=== PATIENT | male | born 1940 | race Caucasian/White ===

== ENCOUNTER 2017-04-07 05:01 | Observation (INO) | payer MEDICARE, OTHER ==
[2017-04-07] MEDS ORDERED: MORPHINE SULFATE 4 MG/ML SYRINGE IV STA (05:27)
--- NOTE | 2017-04-07 05:31 | ED ---
General Adult HPI - General Chief complaint: Extremity Problem,Nontraumatic Stated complaint: Left Hip Pain Time Seen by Provider: 04/07/17 05:19 Source: patient Mode of arrival: EMS Limitations: no limitations - History of Present Illness Initial comments: This patient is 76-year-old man is to be evaluated for pain he is indicating in the left groin. The patient states that it came on around 2:30 in the morning while he was sleeping. He describes it as an aching, moderate to severe, without any worsening or relieving factors. The pain is constant. Patient has not had any associated symptoms. Onset/Timin -: hour(s) Location: left Radiation: non-radiation Quality: aching Consistency: constant Improves with: none Worsens with: none Associated Symptoms: denies other symptoms - Related Data Home Medications Medication Instructions Recorded Confirmed Atorvastatin [Lipitor] 80 mg PO HS 08/17/15 04/07/17 Metoprolol Tartrate [Lopressor] 50 mg PO BID 08/19/15 04/07/17 Lisinopril [Prinivil] 10 mg PO BID 04/07/17 04/07/17 Zolpidem [Ambien] 10 mg PO HS PRN 04/07/17 04/07/17 Previous Rx's Medication Instructions Recorded Multivitamins, Thera [Multivitamin 1 each PO DAILY@1200 #30 tab 08/19/15 (formulary)] Aspirin 81 mg PO DAILY #1 chewable 04/08/17 Baclofen [Lioresal] 5 mg PO TID PRN #30 tab 04/08/17 Naproxen [Naprosyn] 250 mg PO BID #30 tab 04/08/17 predniSONE 20 mg PO DAILY #24 tab 04/08/17 Allergies Allergy/AdvReac Type Severity Reaction Status Date / Time No Known Allergies Allergy Verified 04/07/17 10:22 Review of Systems ROS Statement: Those systems with pertinent positive or pertinent negative responses have been documented in the HPI. ROS Other: All systems not noted in ROS Statement are negative. Constitutional: Denies: fever, chills Respiratory: Denies: cough, dyspnea Cardiovascular: Denies: chest pain Gastrointestinal: Reports: as per HPI, abdominal pain. Denies: vomiting, diarrhea, constipation Genitourinary: Denies: dysuria, frequency, hematuria, testicular pain, testicular mass Musculoskeletal: Denies: back pain Skin: Denies: rash Neurological: Denies: headache, weakness, numbness Past Medical History Past Medical History: Coronary Artery Disease (CAD), Cancer, COPD, GERD/Reflux, Hyperlipidemia, Hypertension, Myocardial Infarction ([place]), Osteoarthritis (OA), Prostate Disorder Additional Past Medical History / Comment(s): prostate cancer, bulging disc, hiatal hernia, shingles 1989 Last Myocardial Infarction Date:: unk History of Any Multi-Drug Resistant Organisms: None Reported Past Surgical History: Adenoidectomy, Coronary Bypass/CABG, Heart Catheterization, Joint Replacement, Tonsillectomy Additional Past Surgical History / Comment(s): when siphoning gas accidentally swallowed some-had sx to removed blackened tissue. quad cabg,becca knee replacements(lt done x2) rt wrist sx, rt hip replacement 08-02-15 at [facility]. Past Anesthesia/Blood Transfusion Reactions: No Reported Reaction Past Psychological History: No Psychological Hx Reported Additional Psychological History / Comment(s): PT LIVES AT HOME WITH HIS , SINCE RECENT RT HIP SX WAS USING A CANE TO AMBULATE. 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 Smoking Status: Never smoker Past Alcohol Use History: Occasional Past Drug Use History: None Reported - Past Family History Mother Family Medical History: Hyperlipidemia, Hypertension Father Family Medical History: Cancer Additional Family Medical History / Comment(s): throat cancer/mets General Exam Limitations: no limitations General appearance: alert, in no apparent distress Head exam: Present: atraumatic, normocephalic Eye exam: Present: normal appearance. Absent: scleral icterus, conjunctival injection Respiratory exam: Present: normal lung sounds bilaterally. Absent: respiratory distress, wheezes, rales, rhonchi, stridor Cardiovascular Exam: Present: regular rate, normal rhythm, normal heart sounds. Absent: systolic murmur, diastolic murmur, rubs, gallop GI/Abdominal exam: Present: soft, normal bowel sounds. Absent: tenderness, guarding, rebound, mass, pulsatile mass, hernia exam: Present: normal inspection, vertical testicular lie. Absent: testicular tenderness, urethral discharge, scrotal swelling Extremities exam: Present: normal inspection, normal capillary refill. Absent: pedal edema, calf tenderness Back exam: Present: normal inspection. Absent: CVA tenderness (R), CVA tenderness (L), paraspinal tenderness, vertebral tenderness Neurological exam: Present: alert Skin exam: Present: warm, dry, intact, normal color. Absent: rash Course Vital Signs 04/07/17 04/07/17 04/07/17 05:02 06:33 07:30 Temperature 97.7 F 97.9 F 98.0 F Pulse Rate 75 64 70 Respiratory 18 20 16 Rate Blood Pressure 171/73 167/72 136/63 O2 Sat by Pulse 96 96 93 L Oximetry 04/07/17 04/07/17 04/07/17 08:38 09:34 10:39 Temperature 98.2 F 97.8 F Pulse Rate 64 72 72 Respiratory 16 16 16 Rate Blood Pressure 132/56 123/57 126/60 O2 Sat by Pulse 94 L 95 96 Oximetry Medical Decision Making - Medical Decision Making Patient 76-year-old man with hip pain and inability ambulate. We'll admit to have orthopedics consulted. - Lab Data Result diagrams: 04/07/17 05:30 04/07/17 05:30 Lab Results 04/07/17 04/07/17 04/07/17 Range/Units 05:30 05:30 05:50 WBC 11.8 H (3.8-10.6) k/uL RBC 4.63 (4.30-5.90) m/uL Hgb 14.9 (13.0-17.5) gm/dL Hct 41.6 (39.0-53.0) % MCV 89.7 (80.0-100.0) fL MCH 32.1 (25.0-35.0) pg MCHC 35.8 (31.0-37.0) g/dL RDW 13.1 (11.5-15.5) % Plt Count 172 (150-450) k/uL Neutrophils % 82 % Lymphocytes % 10 % Monocytes % 5 % Eosinophils % 2 % Basophils % 0 % Neutrophils # 9.7 H (1.3-7.7) k/uL Lymphocytes # 1.2 (1.0-4.8) k/uL Monocytes # 0.6 (0-1.0) k/uL Eosinophils # 0.3 (0-0.7) k/uL Basophils # 0.0 (0-0.2) k/uL Sodium 142 (137-145) mmol/L Potassium 4.0 (3.5-5.1) mmol/L Chloride 108 H (98-107) mmol/L Carbon Dioxide 25 (22-30) mmol/L Anion Gap 9 mmol/L BUN 14 (9-20) mg/dL Creatinine 0.80 (0.66-1.25) mg/dL Est GFR (MDRD) Af Amer >60 (>60 ml/min/1.73 sqM) Est GFR (MDRD) Non-Af >60 (>60 ml/min/1.73 sqM) Glucose 105 H (74-99) mg/dL Plasma Lactic Acid Ramez 1.0 (0.7-2.0) mmol/L Calcium 9.5 (8.4-10.2) mg/dL Total Bilirubin 0.5 (0.2-1.3) mg/dL AST 27 (17-59) U/L ALT 32 (21-72) U/L Alkaline Phosphatase 83 (38-126) U/L Total Protein 6.0 L (6.3-8.2) g/dL Albumin 3.9 (3.5-5.0) g/dL Amylase 52 (30-110) U/L Lipase 76 (23-300) U/L Urine Color Urine Appearance (Clear) Urine pH (5.0-8.0) Ur Specific [place] (1.001-1.035) Urine Protein (Negative) Urine Glucose (UA) (Negative) Urine Ketones (Negative) Urine Blood (Negative) Urine Nitrite (Negative) Urine Bilirubin (Negative) Urine Urobilinogen (<2.0) mg/dL Ur Leukocyte Esterase (Negative) 04/07/17 Range/Units 08:08 WBC (3.8-10.6) k/uL RBC (4.30-5.90) m/uL Hgb (13.0-17.5) gm/dL Hct (39.0-53.0) % MCV (80.0-100.0) fL MCH (25.0-35.0) pg MCHC (31.0-37.0) g/dL RDW (11.5-15.5) % Plt Count (150-450) k/uL Neutrophils % % Lymphocytes % % Monocytes % % Eosinophils % % Basophils % % Neutrophils # (1.3-7.7) k/uL Lymphocytes # (1.0-4.8) k/uL Monocytes # (0-1.0) k/uL Eosinophils # (0-0.7) k/uL Basophils # (0-0.2) k/uL Sodium (137-145) mmol/L Potassium (3.5-5.1) mmol/L Chloride (98-107) mmol/L Carbon Dioxide (22-30) mmol/L Anion Gap mmol/L BUN (9-20) mg/dL Creatinine (0.66-1.25) mg/dL Est GFR (MDRD) Af Amer (>60 ml/min/1.73 sqM) Est GFR (MDRD) Non-Af (>60 ml/min/1.73 sqM) Glucose (74-99) mg/dL Plasma Lactic Acid Ramez (0.7-2.0) mmol/L Calcium (8.4-10.2) mg/dL Total Bilirubin (0.2-1.3) mg/dL AST (17-59) U/L ALT (21-72) U/L Alkaline Phosphatase (38-126) U/L Total Protein (6.3-8.2) g/dL Albumin (3.5-5.0) g/dL Amylase (30-110) U/L Lipase (23-300) U/L Urine Color Yellow Urine Appearance Clear (Clear) Urine pH 5.5 (5.0-8.0) Ur Specific [place] 1.014 (1.001-1.035) Urine Protein Negative (Negative) Urine Glucose (UA) Negative (Negative) Urine Ketones Negative (Negative) Urine Blood Negative (Negative) Urine Nitrite Negative (Negative) Urine Bilirubin Negative (Negative) Urine Urobilinogen <2.0 (<2.0) mg/dL Ur Leukocyte Esterase Negative (Negative) Disposition Clinical Impression: Left hip pain Disposition: ADMITTED IP TO THIS HOSP Condition: Good
[2017-04-07 05:52] LABS: Basophils % (A) 0 %; CH 31.8; CHCM 35.6; Eosinophils # (A) 0.3 k/uL (0-0.7); Eosinophils % (A) 2 %; HCT 41.6 % (39.0-53.0); HDW 2.63; HGB 14.9 gm/dL (13.0-17.5); Luc # (Auto) 0.12; Luc % (Auto) 1; Lymphocytes # (A) 1.2 k/uL (1.0-4.8); Lymphocytes % (A) 10 %; MCH 32.1 pg (25.0-35.0); MCHC 35.8 g/dL (31.0-37.0); MCV 89.7 fL (80.0-100.0); Mean Platelet Volume 7.2; Monocytes # (A) 0.6 k/uL (0-1.0); Monocytes % (A) 5 %; Neutrophils # (A) 9.7 k/uL (1.3-7.7); Neutrophils % (A) 82 %; RBC 4.63 m/uL (4.30-5.90); RDW 13.1 % (11.5-15.5); WBC 11.8 k/uL (3.8-10.6); WBC (Perox) 11.89
[2017-04-07 06:15] LABS: ALT 32 U/L (21-72); AST 27 U/L (17-59); Alkaline Phosphatase 83 U/L (38-126); Amylase 52 U/L (30-110); Anion Gap 9 mmol/L; Blood Urea Nitrogen 14 mg/dL (9-20); Calcium 9.5 mg/dL (8.4-10.2); Carbon Dioxide 25 mmol/L (22-30); Chloride 108 mmol/L (98-107); Glucose 105 mg/dL (74-99); Non-African American GFR(MDRD) >60 (>60 ml/min/1.73 sqM); Sodium 142 mmol/L (137-145); Total Bilirubin 0.5 mg/dL (0.2-1.3)
[2017-04-07] MEDS ORDERED: HYDROmorphone 1 MG/ML 1 ML SYRINGE IVP STA (06:26)
--- NOTE | 2017-04-07 07:42 | CT ---
EXAMINATION TYPE: CT abdomen pelvis wo con DATE OF EXAM: 04/07/2017 COMPARISON: NONE HISTORY: Left groin pain CT DLP: 658.90 mGycm Examination of the solid and hollow viscera is limited given the lack of contrast. FINDINGS: LUNG BASES: No evidence for nodule. No evidence for infiltrate. LIVER/GB: The gallbladder is unremarkable. No space-occupying hepatic lesion. PANCREAS: No pancreatic mass identified. No inflammatory process seen. SPLEEN: No evidence for splenomegaly. No intrasplenic lesions seen. ADRENALS: No adrenal nodules identified. No evidence for thickening. KIDNEYS: There is a small nonobstructing nephrolithiasis of the left kidney measuring 3 mm. No obstru cting calculi are seen. Hypoattenuating lesions both kidneys may reflect cysts. No hydronephrosis. BOWEL: Appendix has a normal appearance. No evidence of bowel obstruction. No inflammatory process. Lymph nodes: No evidence for adenopathy greater than 1 cm. Abdominal aorta: Atheromatous changes seen. No evidence for aneurysm. Genital organs: No significant abnormality. Other: No significant abnormality. IMPRESSION: NONOBSTRUCTING NEPHROLITHIASIS. NO ACUTE PROCESS IDENTIFIED AT THIS TIME TO ACCOUNT FOR THE PATIENT'S SYMPTOMS.
--- NOTE | 2017-04-07 07:43 | XR ---
EXAMINATION TYPE: XR KUB DATE OF EXAM: 04/07/2017 COMPARISON: NONE HISTORY: Pain TECHNIQUE: Single supine KUB image of the abdomen is obtained FINDINGS: Small bowel demonstrates no evidence for dilatation or air fluid levels. Gas and fecal material is seen in non-distended colon. No convincing evidence for pneumoperitoneum. No unusual calcifications. The lung bases are clear. The osseous structures are intact. Severe degenerative change left hip. Right hip prosthesis. IMPRESSION: 1. Overall nonobstructive bowel gas pattern.
[2017-04-07 08:40] LABS: Appearance,Urine Clear (Clear); Bilirubin,Urine Negative (Negative); Glucose,Urine (UA) Negative (Negative); Ketones,Urine Negative (Negative); Leukocyte Esterase,Urine Negative (Negative); Nitrite,Urine Negative (Negative); PH, Urine 5.5 (5.0-8.0); Protein,Urine Negative (Negative); Specific Gravity,Urine 1.014 (1.001-1.035); UA Billing (MACRO vs. MICRO) CHEM; Urobilinogen,Urine <2.0 mg/dL (<2.0)
[2017-04-07] MEDS ORDERED: NALOXONE 0.4 MG/ML 1 ML VIAL IV PRN (09:05)
[2017-04-07] MEDS ORDERED: ZOLPIDEM 10 MG TAB PO PRN (09:08)
[2017-04-07] MEDS ORDERED: SODIUM CHLORIDE 0.9% 1,000 ML IV SCH (09:15)
[2017-04-07] MEDS: MORPHINE SULFATE 4 MG/ML SYRINGE IV PRN ×2 (11:01→23:04)
[2017-04-07 11:49] VITALS: BMI 31.5
[2017-04-07] MEDS ORDERED: METOPROLOL TARTRATE 50 MG TAB PO STA (12:55)
[2017-04-07] MEDS: MULTIVITAMINS, THERA 1 EACH TAB PO SCH (13:03)
--- NOTE | 2017-04-07 16:55 | XR ---
EXAMINATION TYPE: XR Hip LT and AP Pelvis DATE OF EXAM: 04/07/2017 4:45 PM COMPARISON: 08/18/2015 HISTORY: Left hip pain TECHNIQUE: 3 views FINDINGS: Pelvic ring is intact. There is a right hip prosthesis. There is narrowing of left hip joint space. T here is some mild sclerosis and subchondral cystic change in the left femoral head. I see no fracture . Sacroiliac joints appear intact. There is vascular calcification. IMPRESSION Moderate osteoarthritis in left hip joint is stable compared to old exam. No fracture.
[2017-04-07] MEDS: FAMOTIDINE 20 MG TAB PO SCH (20:33)
[2017-04-07] MEDS: METOPROLOL TARTRATE 50 MG TAB PO SCH (20:33)
[2017-04-07] MEDS ORDERED: ATORVASTATIN 80 MG TAB PO SCH (21:00)
[2017-04-07] MEDS: LISINOPRIL 10 MG TAB PO SCH (21:36)
[2017-04-08 07:11] VITALS: RESP 16
[2017-04-08] MEDS: METOPROLOL TARTRATE 50 MG TAB PO SCH (08:23)
[2017-04-08] MEDS: LISINOPRIL 10 MG TAB PO SCH (08:23)
[2017-04-08] MEDS: FAMOTIDINE 20 MG TAB PO SCH (08:23)
[2017-04-08] MEDS ORDERED: ENOXAPARIN 40 MG/0.4 ML SYRINGE SQ SCH (09:00)
[2017-04-08] MEDS ORDERED: LISINOPRIL 10 MG TAB PO SCH (09:00)
[2017-04-08] MEDS: MORPHINE SULFATE 4 MG/ML SYRINGE IV PRN (09:29)
[2017-04-08] MEDS: MULTIVITAMINS, THERA 1 EACH TAB PO SCH (12:52)
[2017-04-08] MEDS ORDERED: NAPROXEN 250 MG TAB PO SCH (14:45)
[2017-04-08] MEDS ORDERED: BACLOFEN 10 MG TAB PO SCH (15:00)
--- NOTE | 2017-04-08 17:11 | P.CNOR ---
History of Present Illness - HPI Consult date: 04/08/17 Consult reason: joint pain (Left hip pain) History of present illness: This is a 76-year-old male who is admitted to [facility] on 02/2017 with intractable left hip pain. Patient states that he woke in the middle of the night with severe left groin pain. He has no history of trauma or injury. He denies fever or chills. He has history of right total hip arthroplasty in the past. We're consulted for orthopedic evaluation. Past Medical History Past Medical History: Coronary Artery Disease (CAD), Cancer, COPD, GERD/Reflux, Hyperlipidemia, Hypertension, Myocardial Infarction ([place]), Osteoarthritis (OA), Prostate Disorder Additional Past Medical History / Comment(s): prostate cancer, bulging disc, hiatal hernia, shingles 1989 Last Myocardial Infarction Date:: unk History of Any Multi-Drug Resistant Organisms: None Reported Past Surgical History: Adenoidectomy, Coronary Bypass/CABG, Heart Catheterization, Joint Replacement, Tonsillectomy Additional Past Surgical History / Comment(s): when siphoning gas accidentally swallowed some-had sx to removed blackened tissue. quad cabg,becca knee replacements(lt done x2) rt wrist sx, rt hip replacement 08-02-15 at [facility]. Past Anesthesia/Blood Transfusion Reactions: No Reported Reaction Past Psychological History: No Psychological Hx Reported Additional Psychological History / Comment(s): PT LIVES AT HOME WITH HIS , SINCE RECENT RT HIP SX WAS USING A CANE TO AMBULATE. 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 Smoking Status: Never smoker Past Alcohol Use History: Occasional Past Drug Use History: None Reported - Past Family History Mother Family Medical History: Hyperlipidemia, Hypertension Father Family Medical History: Cancer Additional Family Medical History / Comment(s): throat cancer/mets Medications and Allergies Home Medications Medication Instructions Recorded Confirmed Type Atorvastatin [Lipitor] 80 mg PO HS 08/17/15 04/07/17 History Metoprolol Tartrate [Lopressor] 50 mg PO BID 08/19/15 04/07/17 History Lisinopril [Prinivil] 10 mg PO BID 04/07/17 04/07/17 History Zolpidem [Ambien] 10 mg PO HS PRN 04/07/17 04/07/17 History Allergies Allergy/AdvReac Type Severity Reaction Status Date / Time No Known Allergies Allergy Verified 04/07/17 10:22 Physical Examination This is a pleasant 76-year-old male in no acute distress. He is alert and oriented 3. Exam of the left hip reveals no obvious deformity. He has difficulty with full extension of the knee and hip. There is pain with internal and external rotation of the hip. Straight leg raise produces no increased pain. He has full foot and ankle motion without difficulty. He has 5 /5 strength with dorsiflexion and plantarflexion of the foot against resistance. The patient is able to ambulate with a walker with slight antalgic gait. Exam of the low back reveals no obvious deformity. There is minimal pain with palpation about the lower lumbar spine and paraspinal musculature. Neurovascular status to the lower extremities is intact. Results X-ray of the pelvis and left hip reveal moderate to severe degenerative arthritis of the left hip. There is a total right hip in place in good position and alignment. No acute fractures are identified. Computed tomography scan of the abdomen and pelvis reveal no bony abnormality. No obvious psoas abscess noted. - Labs Labs: Microbiology - Last 24 Hours (Table) 04/07/17 08:08 Urine Culture - Final Urine,Voided H & H 04/07/17 Range/Units 05:30 Hgb 14.9 (13.0-17.5) gm/dL Hct 41.6 (39.0-53.0) % Result Diagrams: 04/07/17 05:30 04/07/17 05:30 Assessment and Plan (1) Left hip pain Status: Acute (2) Primary localized osteoarthritis of left hip Status: Acute Plan: The clinical and x-ray findings are discussed with the patient. It is discussed that his pain is most likely coming from his degenerative arthritis of the hip. There may also be a lumbar radicular component. He is improving on the anti-inflammatory. I believe that he would improve even quicker with a prednisone taper. He will be discharged to home today. He is to begin the prednisone 60 mg daily 4 days, then 40 mg daily for 4 days, then 20 mg daily for 4 days. He is to follow-up with Dr. Cheek in one week.
[2017-04-08 17:23] VITALS: BP 140/75; PULSE 61; TEMP 97.9
--- NOTE | 2017-04-08 20:11 | HP ---
DATE OF ADMISSION: 04/07/2017 PRESENTING COMPLAINT: Left groin pain. HISTORY OF PRESENTING COMPLAINT: This is a very pleasant 76-year-old patient of Dr. Carbajal. Chronic stable medical conditions include coronary artery disease, prior NH, GERD, hyperlipidemia, hypertension, herniated disc in the lower back. Patient has had multiple joints replaced, has seen Dr. Guzman in the past. Patient has been told he has got arthritis in the left hip. Yesterday he developed severe pain in the left groin area, going down to the bone going across laterally to the left hip. The point is finding difficult to lift the leg and decided to come in to get a second opinion about a joint. No fever. No trouble in the urine. No change in bowel. REVIEW OF SYSTEMS: CONSTITUTIONAL: None. HEENT: None. RESPIRATORY: None. CARDIOVASCULAR: None. GASTROINTESTINAL: Heartburn. GENITOURINARY: None. MUSCULOSKELETAL: As above. Dermatological: None. HEMATOLOGICAL: None. LYMPHATICS: None. PSYCHIATRY: None. NEUROLOGICAL: None. Past medical history of coronary artery disease, GERD, hyperlipidemia, hypertension, osteoarthritis, prostate cancer treated with radiation treatment. Lower back herniated disc. PAST SURGICAL HISTORY: Adenoidectomy, coronary artery bypass, joint replacement, tonsillectomy, bilateral knee replacement, right wrist surgery, right hip replacement. SOCIAL HISTORY: . Uses a cane. 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 Was in [facility], exposed to agent orange. No smoking. Alcohol occasionally. FAMILY HISTORY: Hyperlipidemia, hypertension, throat cancer. HOME MEDICATIONS: 1. Prinivil 10 mg p.o. b.i.d. 2. Ambien 10 mg p.o. q.h.s. 3. Multivitamin 1 tablet p.o. daily at noon. 4. Lopressor 50 mg p.o. b.i.d. 5. Lipitor 80 mg q.h.s. 6. Aspirin 325 p.o. daily p.r.n. ALLERGIES: None. On examination, temperature 98.2, pulse 54, respiratory rate 16, blood pressure 146/55, pulse ox 95% on room air. GENERAL APPEARANCE: Well built, BMI of 37.6 sitting up, not in distress. EYES: Pupils equal. Conjunctivae normal. HEENT: External appearance of nose and ears normal. Oral cavity normal. NECK: JVD not raised. Mass not palpable. RESPIRATORY: Effort normal. Lungs are clear. CARDIOVASCULAR: First and second sounds are normal. No edema. ABDOMEN: Soft, nontender. Liver and spleen not palpable. LYMPHATICS: No lymph nodes palpable in neck or axillae. PSYCHIATRY: Alert and oriented x3. Mood and affect normal. NEUROLOGICAL: Pupils equal. Cranial nerves grossly intact. Power and sensation grossly intact. MUSCULOSKELETAL: Evidence of osteoarthritis especially in the left hip in that left hip range of motion somewhat limited. Arthritis also noted in the hands. INVESTIGATIONS: White count 11.8, hemoglobin 14.9, platelets 172. Potassium 4.0, BUN and creatinine are normal. UA negative. INVESTIGATIONS: Hip x-ray is showing arthritis left hip. ASSESSMENT: 1. Acute flare of arthritis in the left hip, causing range of motion pain and some limitation to walking. 2. Coronary artery disease with prior history coronary artery bypass. 3. Gastroesophageal reflux disease. 4. Hyperlipidemia. 5. Essential hypertension. 6. Primary osteoarthritis in multiple joints including the hands and some replacement from before. 7. Lower back herniated disc. PLAN: Patient's home medications are resumed. We will give patient prescription of Aleve. Orthopedics is consulted for their opinion. Lovenox for DVT prophylaxis. Care was discussed with the patient and await input from orthopedics. Go from there.
--- NOTE | 2017-04-26 20:01 | DS ---
DATE OF ADMISSION: 04/07/2017 DATE OF DISCHARGE: 04/08/2017 FINAL DIAGNOSES: 1. Acute flare-up of osteoarthritis primarily of the left hip causing limited range of motion, maybe some radiculopathy. 2. Coronary artery disease with prior history of coronary artery bypass. 3. Gastroesophageal reflux disease. 4. Hyperlipidemia. 5. Essential hypertension. 6. Primary osteoarthritis of multiple joints including hands and lower back. 7. Chronic lower back herniated disc. CONSULTATION: Dr. Cheek. HOSPITAL COURSE: This patient has increasing pain on the left groin, felt to have osteoarthritis of the left hip. Patient had seen Dr. Guzman in the past and told to get surgery done on that. The patient said he really wanted a second opinion. X-ray did confirm the same. Patient also had a CT scan of the abdomen and pelvis. Dr. Cheek recommended a steroid taper. Patient getting the same. He understands he may need to get surgery down the road. On exam, LUNGS: Decreased breath sounds. CARDIOVASCULAR: First and second sounds normal. DISCHARGE MEDICATIONS: 1. Lipitor 80 mg q.h.s. 2. Lopressor 50 mg b.i.d. 3. Multivitamin 1 tablet p.o. daily at noon. 4. Prinivil 10 mg p.o. b.i.d. 5. Ambien 10 mg q.h.s. p.r.n. 6. Aspirin 81 mg p.o. daily. 7. Baclofen 5 mg p.o. t.i.d. p.r.n. 8. Naproxen 250 mg p.o. b.i.d. 9. Prednisone taper. Follow up with results to physician in a week. Follow with Dr. Carbajal in one week.
== END 2017-04-08 18:29 | disposition home or self-care (01) ==
LOC: EC 05:01 → 3OBS 10:15
PROVIDERS: ADMIT Hospitalist; ATTEND Hospitalist
DX: M16.12 Unilateral primary osteoarthritis, left hip (principal); I10 Essential (primary) hypertension; E78.5 Hyperlipidemia, unspecified; I25.2 Old myocardial infarction; I25.10 Atherosclerotic heart disease of native coronary artery without angina pectoris; Z79.899 Other long term (current) drug therapy; J44.9 Chronic obstructive pulmonary disease, unspecified; K21.9 Gastro-esophageal reflux disease without esophagitis; Z85.46 Personal history of malignant neoplasm of prostate; Z95.1 Presence of aortocoronary bypass graft; Z82.49 Family history of ischemic heart disease and other diseases of the circulatory system; Z92.3 Personal history of irradiation; M51.26 Other intervertebral disc displacement, lumbar region; Z96.653 Presence of artificial knee joint, bilateral; Z96.641 Presence of right artificial hip joint; Z79.82 Long term (current) use of aspirin; M19.042 Primary osteoarthritis, left hand; M19.041 Primary osteoarthritis, right hand; M47.9 Spondylosis, unspecified; M19.91 Primary osteoarthritis, unspecified site
CPT/HCPCS: 99285; 96374 ×2; 96375 ×2; 96376 ×4; 96372; 36415; 80053; 82150; 83605; 83690; 85025; 81003; 87086; 74000; 73502; 74176; G0378 ×2; J2270 ×2; J1650; J1170

== ENCOUNTER 2020-08-17 15:41 | Observation (INO) | payer MEDICARE, OTHER ==
[2020-08-17] MEDS ORDERED: HEPARIN SODIUM,PORCINE 5,000 UNIT/ML 1 ML VIAL IV PRN (15:46)
[2020-08-17] MEDS ORDERED: ACETAMINOPHEN TAB 325 MG TAB PO PRN (15:46)
[2020-08-17] MEDS ORDERED: NALOXONE 0.4 MG/ML 1 ML VIAL IV PRN (15:46)
[2020-08-17] MEDS ORDERED: MORPHINE SULFATE 4 MG/ML SYRINGE IV PRN (15:46)
--- NOTE | 2020-08-17 15:48 | ED ---
General Adult HPI - General Stated complaint: chest pain Source: RN notes reviewed, old records reviewed - History of Present Illness Initial comments: 79-year-old male presenting for evaluation of chest pain. Patient was transferred from outside facility with a non-ST segment elevated WA in an elevated troponin of 0.051. He had been experiencing intermittent chest pain. Pain was left upper chest, nonradiating, no associated nausea or diaphoresis. He was initiated on heparin and transferred for cardiology evaluation. He has remote history of coronary artery bypass graft in 2001. - Related Data Home Medications Medication Instructions Recorded Confirmed Atorvastatin [Lipitor] 80 mg PO HS 08/17/15 04/07/17 Metoprolol Tartrate [Lopressor] 50 mg PO BID 08/19/15 04/07/17 Zolpidem [Ambien] 10 mg PO HS PRN 04/07/17 04/07/17 lisinopriL [Prinivil] 10 mg PO BID 04/07/17 04/07/17 Previous Rx's Medication Instructions Recorded Multivitamins, Thera [Multivitamin 1 each PO DAILY@1200 #30 tab 08/19/15 (formulary)] Aspirin 81 mg PO DAILY #1 chewable 04/08/17 Baclofen [Lioresal] 5 mg PO TID PRN #30 tab 04/08/17 Naproxen [Naprosyn] 250 mg PO BID #30 tab 04/08/17 predniSONE [Deltasone] 20 mg PO DAILY #24 tab 04/08/17 Allergies Allergy/AdvReac Type Severity Reaction Status Date / Time No Known Allergies Allergy Verified 08/17/20 15:49 Review of Systems ROS Statement: Those systems with pertinent positive or pertinent negative responses have been documented in the HPI. ROS Other: All systems not noted in ROS Statement are negative. Past Medical History Past Medical History: Coronary Artery Disease (CAD), Cancer, COPD, GERD/Reflux, Hyperlipidemia, Hypertension, Myocardial Infarction ([place]), Osteoarthritis (OA), Prostate Disorder Additional Past Medical History / Comment(s): prostate cancer, bulging disc,hiatal hernia, shingles 1989 Last Myocardial Infarction Date:: unk History of Any Multi-Drug Resistant Organisms: None Reported Past Surgical History: Adenoidectomy, Coronary Bypass/CABG, Heart Catheteriz ation, Joint Replacement, Tonsillectomy Additional Past Surgical History / Comment(s): when siphoning gas accidentally swallowed some-had sx to removed blackened tissue. quad cabg,becca knee replacements(lt done x2) rt wrist sx, rt hip replacement 08-02-15 at [facility]. Past Anesthesia/Blood Transfusion Reactions: No Reported Reaction Past Psychological History: No Psychological Hx Reported Additional Psychological History / Comment(s): PT LIVES AT HOME WITH HIS , SINCE RECENT RT HIP SX WAS USING A CANE TO AMBULATE. 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 Past Alcohol Use History: Occasional Past Drug Use History: None Reported - Past Family History Mother Family Medical History: Hyperlipidemia, Hypertension Father Family Medical History: Cancer Additional Family Medical History / Comment(s): throat cancer/mets General Exam General appearance: alert, in no apparent distress Head exam: Present: atraumatic, normocephalic Eye exam: Present: normal appearance, PERRL ENT exam: Present: normal exam Neck exam: Present: normal inspection. Absent: tenderness, meningismus Respiratory exam: Present: normal lung sounds bilaterally. Absent: respiratory distress, wheezes Cardiovascular Exam: Present: regular rate, normal rhythm, systolic murmur GI/Abdominal exam: Present: soft. Absent: distended, tenderness, guarding, rebound Extremities exam: Present: normal inspection, normal capillary refill Neurological exam: Present: alert, oriented X3, CN II-XII intact. Absent: motor sensory deficit Psychiatric exam: Present: normal affect, normal mood Skin exam: Present: warm, dry, intact Course Vital Signs 08/17/20 15:42 Temperature 98.2 F Pulse Rate 77 Respiratory 18 Rate Blood Pressure 197/104 O2 Sat by Pulse 98 Oximetry EKG Findings - EKG Comments: EKG Findings:: EKG: Sinus rhythm with first-degree AV block, right bundle branch block, and no ST segment elevation, history of right bundle-branch block, rate of 66, AZ interval 228, QRS duration 158, QTC 448 Medical Decision Making - Medical Decision Making 79-year-old male presented with chest pain and troponin elevation. Patient's chest pain. The emergency department. EKG showing right bundle branch block, no ST segment elevation. Workup at outside facility revealed a white blood cell count 9.7, hemoglobin 15, normal sodium, at 141, potassium 3.9, normal kidney function with a creatinine 0.9. He had a troponin of 0.051. This will be repeated. He had been started on heparin, this will be continued awaiting cardiology evaluation and serial cardiac enzymes. Case discussed with Dr. medina who will admit - Lab Data Result diagrams: 08/17/20 16:04 Lab Results 08/17/20 Range/Units 16:04 WBC 8.8 (3.8-10.6) k/uL RBC 4.66 (4.30-5.90) m/uL Hgb 15.0 (13.0-17.5) gm/dL Hct 44.6 (39.0-53.0) % MCV 95.5 (80.0-100.0) fL MCH 32.2 (25.0-35.0) pg MCHC 33.8 (31.0-37.0) g/dL RDW 12.2 (11.5-15.5) % Plt Count 205 (150-450) k/uL Neutrophils % 68 % Lymphocytes % 20 % Monocytes % 5 % Eosinophils % 5 % Basophils % 1 % Neutrophils # 6.0 (1.3-7.7) k/uL Lymphocytes # 1.8 (1.0-4.8) k/uL Monocytes # 0.4 (0-1.0) k/uL Eosinophils # 0.4 (0-0.7) k/uL Basophils # 0.1 (0-0.2) k/uL Critical Care Time Critical Care Time: Yes Total Critical Care Time: 35 Disposition Clinical Impression: NSTEMI (non-ST elevated myocardial infarction) Disposition: ADMITTED IP TO THIS [facility] Condition: Stable Is patient prescribed a controlled substance at d/c from ED?: No Referrals: Allan Carbajal MD [Primary Care Provider] - 1-2 days Decision to Admit Reason: Admit from EC Decision Date: 08/17/20 Decision Time: 15:48
[2020-08-17] MEDS ORDERED: HEPARIN SOD,PORK IN 0.45% NACL 25,000 UNIT in 0.45% NACL 1 250ML.BAG IV SCH (16:00)
[2020-08-17 16:18] LABS: Basophils # (A) 0.1 k/uL (0-0.2); Basophils % (A) 1 %; Eosinophils # (A) 0.4 k/uL (0-0.7); Eosinophils % (A) 5 %; HCT 44.6 % (39.0-53.0); Lymphocytes # (A) 1.8 k/uL (1.0-4.8); Lymphocytes % (A) 20 %; MCH 32.2 pg (25.0-35.0); MCHC 33.8 g/dL (31.0-37.0); MCV 95.5 fL (80.0-100.0); Mean Platelet Volume 7.2; Monocytes # (A) 0.4 k/uL (0-1.0); Monocytes % (A) 5 %; Neutrophils % (A) 68 %; Platelet Count 205 k/uL (150-450); RBC 4.66 m/uL (4.30-5.90); RDW 12.2 % (11.5-15.5); WBC 8.8 k/uL (3.8-10.6)
[2020-08-17 16:25] LABS: African American GFR (CKD) >90 (>60 ml/min/1.73 sqM); Anion Gap 6 mmol/L; Blood Urea Nitrogen 18 mg/dL (9-20); Calcium 9.4 mg/dL (8.4-10.2); Carbon Dioxide 28 mmol/L (22-30); Chloride 107 mmol/L (98-107); Glucose 124 mg/dL (74-99); Magnesium 2.2 mg/dL (1.6-2.3); Non-African American GFR(CKD) 79 (>60 ml/min/1.73 sqM); Potassium 4.4 mmol/L (3.5-5.1); Sodium 141 mmol/L (137-145)
[2020-08-17 16:31] LABS: Prothrombin Time 10.1 sec (9.0-12.0)
[2020-08-17 16:36] LABS: Partial Thromboplastin Time 67.3 sec (22.0-30.0)
[2020-08-17] MEDS ORDERED: ATORVASTATIN 40 MG TAB PO SCH (21:00)
[2020-08-17] MEDS: METOPROLOL TARTRATE 50 MG TAB PO SCH ×2 (21:55→21:59)
[2020-08-17] MEDS: lisinopriL 10 MG TAB PO SCH (21:56)
[2020-08-17] MEDS ORDERED: TEMAZEPAM 15 MG CAP PO PRN (22:25)
[2020-08-17] MEDS ORDERED: HYDROcodone/APAP 5-325MG 1 EACH TAB PO PRN (22:25)
[2020-08-17] MEDS ORDERED: ALPRAZolam 0.25 MG TAB PO PRN (22:25)
[2020-08-17] MEDS ORDERED: SIMETHICONE 80 MG CHEWABLE PO PRN (23:00)
--- NOTE | 2020-08-17 23:07 | XR ---
EXAMINATION TYPE: XR chest 1V portable DATE OF EXAM: 08/17/2020 COMPARISON: Today HISTORY: Short of breath TECHNIQUE: Single view FINDINGS: There is no heart failure nor confluent pneumonic infiltrate. There is small linear density left lung base. There are sternal wires. There are no hilar masses. There are chest leads. IMPRESSION: Minimal subsegmental atelectasis at the left lung base. No significant change compared to exam earlier today. No heart failure.
--- NOTE | 2020-08-17 23:36 | HP ---
HISTORY AND PHYSICAL CHIEF COMPLAINT: Chest pain. HISTORY OF PRESENT ILLNESS: This 79-year-old gentleman with a past medical history of CAD, history of COPD, GERD, hypertension, hyperlipidemia, history of myocardial infarction, CAD, CABG, being followed by Dr. Carbajal in the outpatient setting, was having chest pains for the past several days. The pain was felt in the anterior part of the chest. It was rather sharp in character, on and off multiple times. The patient went to a local hospital and troponin was found to be 0.05. Patient was referred to [facility] for further evaluation and treatment. The initial troponins were found to be 0.044 and 0.051. Heparin was initiated. Acute coronary protocol was initiated. EKG done on admission showed right bundle branch block also. There is no history of any fever, rigor or chills. No history of headache, loss of consciousness, seizures. PAST MEDICAL HISTORY: History of CAD, CABG, COPD, GERD, hypertension, hyperlipidemia, prostate cancer. MEDICATIONS: Medications prior to admission include: 1. Prinivil 10 mg p.o. b.i.d. 2. Simethicone 160 mg t.i.d. p.r.n. 3. Lopressor 50 mg p.o. b.i.d. 4. Lipitor 40 mg. 5. Ecotrin 81 mg. 6. Aspirin 650 mg once. ALLERGIES: NONE. FAMILY HISTORY: History of hypertension, hyperlipidemia, sore throat, cancer with metastases. SOCIAL HISTORY: No history of smoking. Occasional alcohol intake. REVIEW OF SYSTEMS: ENT: Diminished hearing. Diminished vision. CARDIOVASCULAR SYSTEM: As mentioned earlier. RESPIRATORY SYSTEM: As mentioned earlier. GI: No nausea, vomiting. : No dysuria or retention. NERVOUS SYSTEM: No numbness, weakness. ALLERGY/IMMUNOLOGY: No asthma, hayfever. MUSCULOSKELETAL: As mentioned earlier. HEMATOLOGY/ONCOLOGY: No history of anemia. ENDOCRINE: No history of diabetes, hypothyroidism. CONSTITUTIONAL: As mentioned earlier. DERMATOLOGY: Negative. RHEUMATOLOGY: Negative. PSYCHIATRY: As mentioned earlier. PHYSICAL EXAMINATION: Patient alert and oriented x3. Pulse 64, blood pressure 168/85, respiration 18, temperature 98.2, pulse ox 96% on room air. HEENT: Conjunctivae normal. NECK: No jugular venous distention. CARDIOVASCULAR SYSTEM: S1, S2 muffled. RESPIRATORY SYSTEM: Breath sounds diminished at the bases. A few scattered rhonchi and crackles. ABDOMEN: Soft, non-tender. No mass palpable. LEGS: No edema. No swelling. NERVOUS SYSTEM: Higher functions as mentioned earlier. Moves all 4 limbs. No focal motor or sensory deficit. LYMPHATICS: No lymph node palpable in neck, axillae or groin. SKIN: No ulcer, rash, bleeding. JOINTS: No active deforming arthropathy. LABS: CBC within normal limits. Troponins are noted. Glucose 124. ASSESSMENT: 1. Chest pain, possible acute uvp-CG-[id number]-elevation myocardial infarction. 2. Troponin 0.051. 3. Right bundle branch block on EKG. 4. Coronary artery disease, coronary artery bypass grafting history. 5. History of chronic obstructive pulmonary disease. 6. Gastroesophageal reflux disease. 7. Hypertension. 8. Hyperlipidemia. 9. History of degenerative joint disease. 10.History of prostate cancer. 11.History of hiatal hernia. 12.History of shingles. 13.Social stressors. 14.FULL CODE. RECOMMENDATIONS AND DISCUSSION: In this 79-year-old gentleman who presented with multiple complex medical issues, we will monitor the patient closely, continue the current medications, continue with symptomatic treatment. Otherwise, IV heparin. Resume the home medications. Antiplatelet agents. Lipitor. Cardiology consultation. Prognosis guarded because of multiple complex medical issues. Further recommendations to follow. A copy of this dictation is being forwarded to Dr. Carbajal, who is the primary physician. See orders for further details. MMODL / IJN: [id number] /
[2020-08-18] MEDS: METOPROLOL TARTRATE 50 MG TAB PO SCH (08:00)
[2020-08-18 08:47] LABS: Basophils # (A) 0.1 k/uL (0-0.2); Basophils % (A) 1 %; Eosinophils # (A) 0.4 k/uL (0-0.7); Eosinophils % (A) 5 %; HGB 15.5 gm/dL (13.0-17.5); Lymphocytes # (A) 1.5 k/uL (1.0-4.8); Lymphocytes % (A) 19 %; MCH 31.4 pg (25.0-35.0); MCHC 32.3 g/dL (31.0-37.0); MCV 97.3 fL (80.0-100.0); Mean Platelet Volume 7.6; Monocytes # (A) 0.4 k/uL (0-1.0); Monocytes % (A) 5 %; Neutrophils # (A) 5.4 k/uL (1.3-7.7); Neutrophils % (A) 68 %; Platelet Count 175 k/uL (150-450); RBC 4.93 m/uL (4.30-5.90); RDW 12.2 % (11.5-15.5)
[2020-08-18 08:50] LABS: African American GFR (CKD) >90 (>60 ml/min/1.73 sqM); Anion Gap 8 mmol/L; Blood Urea Nitrogen 14 mg/dL (9-20); Calcium 9.1 mg/dL (8.4-10.2); Carbon Dioxide 22 mmol/L (22-30); Chloride 109 mmol/L (98-107); Glucose 97 mg/dL (74-99); Non-African American GFR(CKD) 86 (>60 ml/min/1.73 sqM); Potassium 4.4 mmol/L (3.5-5.1); Sodium 139 mmol/L (137-145)
[2020-08-18] MEDS ORDERED: ASPIRIN 81 MG PO SCH (09:00)
--- NOTE | 2020-08-18 09:08 | ECHOF ---
Referral Reason:CP MEASUREMENTS -------- HEIGHT: 167.6 cm WEIGHT: 82.6 kg BP: IVSd: 1.7 cm (0.6 - 1.1) LVIDd: 4.6 cm (3.9 - 5.3) LVPWd: 1.6 cm (0.6 - 1.1) IVSs: 2.1 cm LVIDs: 3.6 cm LVPWs: 2.0 cm LAESV Index (A-L): 35.26 ml/m Ao Diam: 3.3 cm (2.0 - 3.7) AV Cusp: 1.5 cm (1.5 - 2.6) LA Diam: 3.7 cm (2.7 - 3.8) MV EXCURSION: 15.271 mm (> 18.000) MV EF SLOPE: 65 mm/s (70 - 150) EPSS: 1.0 cm MV E Mart: 0.95 m/s MV DecT: 260 ms MV A Mart: 0.31 m/s MV E/A Ratio: 3.09 RAP: 5.00 mmHg RVSP: 7.73 mmHg FINDINGS -------- Sinus rhythm. This was a technically difficult study with suboptimal views. The left ventricular size is normal. There is moderate concentric left ventricular hypertrophy. O verall left ventricular systolic function is mildly impaired with, an EF between 45 - 50 %. Normal LAP Grade 1 Diastolic Dysfunction. Basal lateral LV wall motion is hypokinetic. Mid lateral LV w all motion is hypokinetic. The right ventricle is normal in size. LA is moderately dilated 34-39 ml/m2 The right atrial size is normal. Lumason used There is mild aortic valve sclerosis. The mitral valve is normal. Mild mitral regurgitation is present. The tricuspid valve appears structurally normal. Mild tricuspid regurgitation present. Right vent ricular systolic pressure is normal at < 35 mmHg. There is no pulmonic regurgitation present. The aortic root size is normal. IVC Not well visulized. There is no pericardial effusion. CONCLUSIONS -------- 1. There is moderate concentric left ventricular hypertrophy. 2. Overall left ventricular systolic function is mildly impaired with, an EF between 45 - 50 %. 3. Normal LAP Grade 1 Diastolic Dysfunction. 4. Basal lateral LV wall motion is hypokinetic. 5. Mid lateral LV wall motion is hypokinetic. 6. LA is moderately dilated 34-39 ml/m2 7. There is mild aortic valve sclerosis. 8. Mild mitral regurgitation is present. 9. Mild tricuspid regurgitation present. 10. There is no pericardial effusion. EMU FARMER: Farida Mcmahan RDCS
[2020-08-18 09:29] VITALS: RESP 16
[2020-08-18] MEDS ORDERED: CAFFEINE CITRATE 60 MG/3 ML VIAL IV PRN (09:41)
[2020-08-18] MEDS ORDERED: REGADENOSON 0.4 MG/5 ML SYRINGE IV ONE (09:41)
[2020-08-18] MEDS ORDERED: AMINOPHYLLINE 500 MG/20 ML VIAL IV PRN (09:41)
[2020-08-18] MEDS: lisinopriL 10 MG TAB PO SCH (09:42)
--- NOTE | 2020-08-18 12:41 | NM ---
EXAMINATION TYPE: NM stress lexiscan cardiolite DATE OF EXAM: 08/18/2020 COMPARISON: NONE HISTORY: 79-year-old male with chest pain TECHNIQUE: After the intravenous administration of 10.1 mCi Tc 99m Sestamibi - Cardiolite resting SP ECT images acquired 55 minutes post injection. The patient received 0.4mg Lexiscan, 25.4 mCi Tc 99m Sestamibi - Stress images obtained [address] injection FINDINGS: During the exam, the technologist indicates right bundle branch block and PVCs on the EKG. Review of stress and rest SPECT images demonstrates slight left ventricular chamber enlargement and l arge area of fixed decreased perfusion along the inferior wall. Gated analysis shows global hypokines is with an estimated left ventricular ejection fraction of 42 %. TID is normal at 0.73. IMPRESSION: Correlate for ischemic cardiomyopathy given some left ventricular chamber enlargement, global hypokin esis, estimated LVEF of 42%, and a large fixed perfusion defect of the inferior wall suggesting old i nfarct. No reversibility identified.
--- NOTE | 2020-08-18 12:42 | P.CRDCN ---
History of Present Illness History of present illness: HISTORY OF PRESENTING ILLNESS This is a pleasant 79-year-old male past medical history significant for inferior wall myocardial infarction 2002 status post coronary artery bypass grafting with ROBERSON to LAD, ADALBERTO to OM, SVG to diagonal SVG to RCA, COPD, hypertension, dyslipidemia and prostate cancer. He follows in the office with Dr. Key. We have been asked to see in consultation for troponin elevation. He presented initially to [facility] secondary to a one-week history of intermittent chest pain. Initial troponin on arrival there was 0.051 prompting him to be transferred here for further cardiac evaluation. His chest discomfort is in the left precordial region with no specific exacerbating factors. The pain was sharp in nature and not associated with shortness of breath, dizziness, palpitations, nausea, vomiting or diaphoresis. There was no radiation to the neck, back, arm or jaw. The pain has been intermittent and ongoing for the previous one week. He is seen and examined sitting up in the chair in no acute distress. He is currently chest pain-free. Echocardiogram obtained reveals mildly impaired LV systolic function with ejection fraction 45-50%, grade 1 diastolic dysfunction, basal lateral and mid lateral wall motion hypokinesia, mild MR and mild TR. DIAGNOSTICS EKG reveals sinus mechanism with first degree AV block and right bundle branch block. Chest xray negative for an acute cardiopulmonary process. Laboratory reviewed, CBC unremarkable, sodium 139, potassium 4.4, creatinine 0.79, magnesium 2.2, troponin 0.044, 0.051 and 0.049. Current cardiac medications include aspirin 81 mg daily, atorvastatin 40 mg daily, metoprolol 50 mg twice a day lisinopril 10 mg twice a day. He underwent stress test in the office October 2019 revealing a fixed defect with no evidence of reversibility. Echocardiogram obtained September 2018 reve aled mildly impaired LV systolic function with ejection fraction 45%. REVIEW OF SYSTEMS At the time of my exam: CONSTITUTIONAL: Denies fever or chills. CARDIOVASCULAR: Denies chest pain, shortness of breath, orthopnea, PND or palpitations. RESPIRATORY: Denies cough. GASTROINTESTINAL: Denies abdominal pain, diarrhea, constipation, nausea or vomiting. MUSCULOSKELETAL: Denies myalgias. NEUROLOGIC: Denies numbness, tingling or weakness. ENDOCRINE: Denies fatigue, weight change, polydipsia or polyurina. GENITOURINARY: Denies burning, hematuria or urgency with micturation. HEMATOLOGIC: Denies history of anemia or bleeding. PHYSICAL EXAMINATION Blood pressure 173/74 heart rate 67 afebrile and maintaining oxygen saturation on room air. CONSTITUTIONAL: No apparent distress. HEENT: Head is normocephalic. Pupils are equal, round. Sclerae anicteric. Mucous membranes of the mouth are moist. No JVD. No carotid bruit. CHEST EXAMINATION: Lungs are clear to auscultation. No chest wall tenderness is noted on palpation or with deep breathing. HEART EXAMINATION: Regular rate and rhythm. S1, S2 heard. No murmurs, gallops or rub. ABDOMEN: Soft, nontender. Positive bowel sounds. EXTREMITIES: 2+ peripheral pulses, no lower extremity edema and no calf tenderness. NEUROLOGIC EXAMINATION: Patient is awake, alert and oriented x3. ASSESSMENT Chest pain, atypical for angina. Troponin elevation of unclear significance. No typical rise and fall pattern. History of coronary artery disease status post bypass grafting. History of inferior wall myocardial infarction Hypertension Dyslipidemia PLAN Discussed with the patient the troponin elevation and the possible cause being myocardial injury. He feels like his symptoms are not like they were in 2001 and would prefer stress testing. This is a reasonable approach.We will schedule him for a Lexiscan stress test this morning. If there is evidence of reversibility he will undergo cathterization tomorrow with Dr. Key. Discontinue heparin infusion. Continue lisinopril, metoprolol, aspirin and atorvastatin as previously ordered. Further recommendations to follow based on clinical course. Thank you kindly for this consultation. Nurse Practitioner note has been reviewed, I agree with a documented findings and plan of care. Patient was seen and examined. Past Medical History Past Medical History: Coronary Artery Disease (CAD), Cancer, COPD, GERD/Reflux, Hyperlipidemia, Hypertension, Myocardial Infarction ([place]), Osteoarthritis (OA), Prostate Disorder Additional Past Medical History / Comment(s): prostate cancer, bulging disc,hiatal hernia, shingles 1989 Last Myocardial Infarction Date:: unk History of Any Multi-Drug Resistant Organisms: None Reported Past Surgical History: Adenoidectomy, Coronary Bypass/CABG, Heart Catheterization, Joint Replacement, Tonsillectomy Additional Past Surgical History / Comment(s): when siphoning gas accidentally swallowed some-had sx to removed blackened tissue. quad cabg,becca knee replacements(lt done x2) rt wrist sx, rt hip replacement 08-02-15 at [facility]. Past Anesthesia/Blood Transfusion Reactions: No Reported Reaction Past Psychological History: No Psychological Hx Reported Additional Psychological History / Comment(s): PT LIVES AT HOME WITH HIS , SINCE RECENT RT HIP SX WAS USING A CANE TO AMBULATE. 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 Smoking Status: Never smoker Past Alcohol Use History: Occasional Past Drug Use History: None Reported - Past Family History Mother Family Medical History: Hyperlipidemia, Hypertension Father Family Medical History: Cancer Additional Family Medical History / Comment(s): throat cancer/mets Medications and Allergies Home Medications Medication Instructions Recorded Confirmed Type Metoprolol Tartrate [Lopressor] 50 mg PO BID 08/19/15 08/17/20 History lisinopriL [Prinivil] 10 mg PO BID 04/07/17 08/17/20 History Aspirin 650 mg PO ONCE PRN 08/17/20 08/17/20 History Aspirin EC [Ecotrin Low Dose] 81 mg PO DAILY 08/17/20 08/17/20 History Atorvastatin [Lipitor] 40 mg PO HS 08/17/20 08/17/20 History Simethicone 160 mg PO TID PRN 08/17/20 08/17/20 History Allergies Allergy/AdvReac Type Severity Reaction Status Date / Time No Known Allergies Allergy Verified 08/17/20 16:19 Physical Exam Vitals: Vital Signs Temp Pulse Pulse Resp BP BP Pulse Ox 08/18/20 04:00 98.2 F 58 L 17 102/58 97 08/18/20 00:00 98.1 F 57 L 16 102/55 95 08/17/20 20:00 98.4 F 60 17 142/67 96 08/17/20 18:05 98.2 F 64 18 168/85 96 08/17/20 16:26 61 18 174/75 96 08/17/20 15:42 98.2 F 77 18 197/104 98 Intake and Output 08/17/20 08/18/20 08/18/20 22:59 06:59 14:59 Output Total 600 Balance -600 Output: Urine 600 Other: Voiding Method Toilet Urinal Weight 85.275 kg 82.7 kg Results 08/18/20 07:26 10/15/20 07:26 Cardiac Enzymes 08/17/20 08/17/20 08/17/20 Range/Units 16:04 18:52 22:17 Troponin I 0.044 H* 0.051 H* 0.049 H* (0.000-0.034) ng/mL Coagulation 08/17/20 08/17/20 Range/Units 16:04 22:17 PT 10.1 (9.0-12.0) sec APTT 67.3 H 53.2 H (22.0-30.0) sec CBC 08/17/20 Range/Units 16:04 WBC 8.8 (3.8-10.6) k/uL RBC 4.66 (4.30-5.90) m/uL Hgb 15.0 (13.0-17.5) gm/dL Hct 44.6 (39.0-53.0) % Plt Count 205 (150-450) k/uL Comprehensive Metabolic Panel 08/17/20 Range/Units 16:04 Sodium 141 (137-145) mmol/L Potassium 4.4 (3.5-5.1) mmol/L Chloride 107 (98-107) mmol/L Carbon Dioxide 28 (22-30) mmol/L BUN 18 (9-20) mg/dL Creatinine 0.93 (0.66-1.25) mg/dL Glucose 124 H (74-99) mg/dL Calcium 9.4 (8.4-10.2) mg/dL Current Medications Generic Name Dose Route Start Last Admin Trade Name Freq PRN Reason Stop Dose Admin Acetaminophen 650 mg 08/17/20 15:46 Acetaminophen Tab 325 Mg Tab PO Q6HR PRN Mild Pain or Fever > 100.5 Hydrocodone Bitart/Acetaminophen 1 each 08/17/20 22:25 Hydrocodone/Apap 5-325mg 1 Each Tab PO Q6HR PRN Pain Alprazolam 0.25 mg 08/17/20 22:25 Alprazolam 0.25 Mg Tab PO TID PRN Anxiety Aspirin 81 mg 08/18/20 09:00 Aspirin 81 Mg PO DAILY ROSE MARIE Atorvastatin Calcium 40 mg 08/17/20 21:00 08/17/20 21:56 Atorvastatin 40 Mg Tab PO 40 mg HS ROSE MARIE Administration Heparin Sodium (Porcine) 0 unit 08/17/20 15:46 Heparin Sodium,Porcine 5,000 Unit/Ml 1 Ml Vial IV PER PROTOCOL PRN Low PTT Protocol Heparin Sodium/Sodium Chloride 250 mls @ 10.003 mls/hr 08/17/20 16:00 08/17/20 16:23 25,000 unit/ Sodium Chloride IV 11.73 units/kg/hr .Q24H ROSE MARIE 10 mls/hr Administration Protocol 11.73 UNITS/KG/HR Lisinopril 10 mg 08/17/20 21:00 08/17/20 21:56 Lisinopril 10 Mg Tab PO 10 mg BID ROSE MARIE Administration Metoprolol Tartrate 50 mg 08/17/20 21:00 08/17/20 21:59 Metoprolol Tartrate 50 Mg Tab PO 50 mg BID ROSE MARIE Administration Morphine Sulfate 4 mg 08/17/20 15:46 Morphine Sulfate 4 Mg/Ml Syringe IV Q4HR PRN Severe Pain Naloxone HCl 0.2 mg 08/17/20 15:46 Naloxone 0.4 Mg/Ml 1 Ml Vial IV Q2M PRN Opioid Reversal Simethicone 160 mg 08/17/20 23:00 Simethicone 80 Mg Chewable PO TID PRN Indigestion Temazepam 15 mg 08/17/20 22:25 Temazepam 15 Mg Cap PO HS PRN Insomnia Intake and Output 08/17/20 08/18/20 08/18/20 22:59 06:59 14:59 Output Total 600 Balance -600 Output: Urine 600 Other: Voiding Method Toilet Urinal Weight 85.275 kg 82.7 kg 08/17/20 16:04 08/17/20 16:04
--- NOTE | 2020-08-18 14:22 | EST ---
EXERCISE STRESS AGE: 79 SEX: M PROTOCOL: Lexiscan Cardiolite Stress Test HEART RATE REST: 58 BLOOD PRESSURE REST: 127/67 MAXIMUM HEART RATE ACHIEVED: @@ MAXIMUM BLOOD PRESSURE: @@ NDICATIONS: Chest pain. CLINICAL INFORMATION: Baseline rhythm is a sinus mechanism, rate of 58, right bundle branch block, nonspecific ST-T wave changes, baseline blood pressure 127/67 mmHg. Patient received injection of Lexiscan. Electrocardiograph monitoring revealed rare PVCs. Cardiolite was injected per protocol. CONCLUSION: 1. Nondiagnostic electrocardiograph stress testing. 2. Nuclear images will be reported separately. MMODL / IJN: [id number] /
[2020-08-18 14:33] VITALS: BP 112/52; PULSE 59; TEMP 98.6
--- NOTE | 2020-08-19 03:43 | DS ---
DISCHARGE SUMMARY DATE OF SERVICE: 08/18/2020 FINAL DIAGNOSES: 1. Chest pain, possible acute ova-PB-ydubrra-elevation myocardial infarction status post stress test which is showing no reversible ischemia. 2. Troponin 0.051. 3. Right bundle branch block on EKG. 4. Coronary artery disease, coronary artery bypass grafting history. 5. History of chronic obstructive pulmonary disease. 6. Gastroesophageal reflux disease. 7. Hypertension. 8. Hyperlipidemia. 9. History of degenerative joint disease. 10.History of prostate cancer. 11.History of hiatal hernia. 12.History of shingles. 13.Social stressors. 14.FULL CODE. DISCHARGE DISPOSITION: The patient will be discharged in stable condition with guarded prognosis. Discharge cleared by Cardiology. HISTORY OF PRESENT ILLNESS: This 79-year-old gentleman was being followed by Dr. Carbajal in the outpatient setting was admitted with chest pain. The troponin was found to be 0.051 as mentioned earlier. Patient underwent cardiac stress test per Cardiology, which showed no evidence of reversible ischemia. The patient will be discharged in stable condition with guarded prognosis. On exam, vitals are stable. CARDIOVASCULAR: S1, S2 muffled. ABDOMEN: Soft. NERVOUS SYSTEM: No focal deficits. Once again, discharge cleared by Cardiology. The patient was asymptomatic at this time DISCHARGE ADVICE AND MEDICATIONS: 1. Diet is cardiac. 2. Activity limited until followup. 3. Follow up with Dr. Carbajal in 2 to 3 days. 4. Follow up with Dr. Key as advised. Medications: 1. Ecotrin 81 mg daily. 2. Lipitor 40 mg at bedtime. 3. Lopressor 50 mg p.o. b.i.d. 4. Prinivil 10 mg b.i.d. 5. Simethicone 160 mg p.o. t.i.d. Once again, the patient will be discharged in stable condition with guarded prognosis. MMODL / IJN: [id number] /
== END 2020-08-18 17:00 | disposition home or self-care (01) ==
LOC: EC 15:41 → 3SCARD 16:52
PROVIDERS: ADMIT Internal Medicine; ATTEND Internal Medicine
DX: R07.89 Other chest pain (principal); R79.89 Other specified abnormal findings of blood chemistry; I25.10 Atherosclerotic heart disease of native coronary artery without angina pectoris; I45.10 Unspecified right bundle-branch block; I49.3 Ventricular premature depolarization; I44.0 Atrioventricular block, first degree; I10 Essential (primary) hypertension; K21.9 Gastro-esophageal reflux disease without esophagitis; J44.9 Chronic obstructive pulmonary disease, unspecified; E78.5 Hyperlipidemia, unspecified; M19.90 Unspecified osteoarthritis, unspecified site; K44.9 Diaphragmatic hernia without obstruction or gangrene; Z73.3 Stress, not elsewhere classified; Z79.82 Long term (current) use of aspirin; Z79.899 Other long term (current) drug therapy; I25.2 Old myocardial infarction; Z96.653 Presence of artificial knee joint, bilateral; Z96.641 Presence of right artificial hip joint; Z95.1 Presence of aortocoronary bypass graft; Z85.46 Personal history of malignant neoplasm of prostate; Z86.19 Personal history of other infectious and parasitic diseases; Z82.49 Family history of ischemic heart disease and other diseases of the circulatory system; Z83.49 Family history of other endocrine, nutritional and metabolic diseases; Z80.8 Family history of malignant neoplasm of other organs or systems
CPT/HCPCS: 96366 ×3; 96365; 99291; 36415; 93005; 93017; 80048 ×2; 83735; 84484; 85025 ×2; 85610; 85730 ×2; 71045; 78452; G0378 ×2; C8929; A9500; J2785; Q9950; J1644; 93306

== ENCOUNTER 2022-08-10 05:58 | Inpatient (IN) | payer MEDICARE, OTHER ==
[2022-08-09 10:32] VITALS: BMI 29.9
[~2022-08-10 05:58] MED LIST: ALPRAZolam 0.25 MG TAB PO PRN; ALPRAZolam 0.5 MG TAB PO PRN; ASPIRIN 325 MG TAB PO PRN; CLOPIDOGREL 75 MG TAB PO PRN; LIDOCAINE 1% (10MG/ML) FOR IV START INTRADERMA PRN; NITROGLYCERIN SL TABS 0.4 MG TAB SUBLINGUAL PRN; ONDANSETRON 4 MG/2 ML VIAL IVP ONE; PRASUGREL 10 MG TAB PO PRN; SODIUM CHLORIDE 0.9% 1,000 ML in EMPTY BAG 1 BAG IV ONE; TICAGRELOR 90 MG TAB PO PRN
[2022-08-10] MEDS ORDERED: ceFAZolin 2 GM in SODIUM CHLORIDE 0.9% 500 ML 500 ML IRRIGATION PRN (06:00)
[2022-08-10 06:34] LABS: Glucose,Whole Blood 114 mg/dL (70-110)
[2022-08-10 06:38] LABS: Basophils # (A) 0.1 k/uL (0-0.2); Basophils % (A) 1 %; Eosinophils # (A) 0.4 k/uL (0-0.7); Eosinophils % (A) 4 %; HCT 48.1 % (39.0-53.0); HGB 16.2 gm/dL (13.0-17.5); Lymphocytes % (A) 17 %; MCH 30.9 pg (25.0-35.0); MCHC 33.6 g/dL (31.0-37.0); MCV 92.1 fL (80.0-100.0); Mean Platelet Volume 8.5; Monocytes # (A) 0.5 k/uL (0-1.0); Monocytes % (A) 5 %; Neutrophils # (A) 8.2 k/uL (1.3-7.7); Neutrophils % (A) 72 %; Platelet Count 189 k/uL (150-450); RBC 5.22 m/uL (4.30-5.90); RDW 12.3 % (11.5-15.5); WBC 11.5 k/uL (3.8-10.6)
[2022-08-10 06:53] LABS: Calcium 9.5 mg/dL (8.4-10.2); Potassium 4.2 mmol/L (3.5-5.1)
[2022-08-10] MEDS ORDERED: CLOPIDOGREL 75 MG TAB PO PRN (07:19)
--- NOTE | 2022-08-10 07:21 | P.GSHP ---
History of Present Illness H&P Date: 08/10/22 Chief Complaint: carotid stenosis 81 year old gentleman with history of TIA's and worsening stenosis of the left ICA seen on ultrasound and CTA presents today for TCAR. - Review of Systems All systems: negative (what is mentioned in the PMH or HPI) Past Medical History Past Medical History: Coronary Artery Disease (CAD), Cancer, GERD/Reflux, Hyperlipidemia, Hypertension, Myocardial Infarction ([place]), Osteoarthritis (OA), Prostate Disorder Additional Past Medical History / Comment(s): carotid stenosis,prostate cancer- received 40 radiation tx's, bulging disc,hiatal hernia, shingles 1989,MIx2 Last Myocardial Infarction Date:: 2017 History of Any Multi-Drug Resistant Organisms: None Reported Past Surgical History: Adenoidectomy, Coronary Bypass/CABG, Heart Catheterization, Joint Replacement, Tonsillectomy Additional Past Surgical History / Comment(s): when siphoning gas accidentally swallowed some-had sx to removed blackened tissue in esophagus. quad cabg 2001, becca knee replacements(lt done x2) rt wrist sx, rt hip replacement 08-02-15 at [facility],cataracts Past Anesthesia/Blood Transfusion Reactions: No Reported Reaction Smoking Status: Never smoker - Past Family History Mother Family Medical History: Hyperlipidemia, Hypertension Father Family Medical History: Cancer Additional Family Medical History / Comment(s): throat cancer/mets Medications and Allergies Home Medications Medication Instructions Recorded Confirmed Type Metoprolol Tartrate [Lopressor] 50 mg PO BID 08/19/15 08/09/22 History lisinopriL [Prinivil] 10 mg PO BID 04/07/17 08/09/22 History Atorvastatin [Lipitor] 40 mg PO HS 08/17/20 08/09/22 History Acetaminophen Tab [Tylenol] 500 - 1,000 mg PO Q6H PRN 08/09/22 08/10/22 History Aspirin 325 - 650 mg PO DAILY PRN 08/09/22 08/10/22 History Allergies Allergy/AdvReac Type Severity Reaction Status Date / Time No Known Allergies Allergy Verified 08/10/22 06:13 Surgical - Exam Vital Signs Temp Pulse Resp BP Pulse Ox 98.4 F 76 18 186/91 96 08/10/22 06:30 08/10/22 06:30 08/10/22 06:30 08/10/22 06:30 08/10/22 06:30 - General well developed, well nourished, no distress - Eyes PERRL - ENT normal pinna - Neck no masses - Respiratory normal expansion, normal respiratory effort - Cardiovascular Rhythm: regular - Abdomen Abdomen: soft, non tender - Integumentary no rash - Neurologic normal coordination, normal sensation - Musculoskeletal normal gait, normal posture - Psychiatric oriented to time, oriented to place, speech is normal Results - Labs 08/10/22 06:25 08/10/22 06:25 Abnormal Lab Results - Last 24 Hours (Table) 08/10/22 08/10/22 08/10/22 Range/Units 06:23 06:25 06:25 WBC 11.5 H (3.8-10.6) k/uL Neutrophils # 8.2 H (1.3-7.7) k/uL Glucose 116 H (74-99) mg/dL POC Glucose (mg/dL) 114 H (70-110) mg/dL Diabetes panel 08/10/22 Range/Units 06:25 Sodium 142 (137-145) mmol/L Potassium 4.2 (3.5-5.1) mmol/L Chloride 107 (98-107) mmol/L Carbon Dioxide 24 (22-30) mmol/L BUN 17 (9-20) mg/dL Creatinine 0.95 (0.66-1.25) mg/dL Glucose 116 H (74-99) mg/dL Calcium 9.5 (8.4-10.2) mg/dL Calcium panel 08/10/22 Range/Units 06:25 Calcium 9.5 (8.4-10.2) mg/dL Pituitary panel 08/10/22 Range/Units 06:25 Sodium 142 (137-145) mmol/L Potassium 4.2 (3.5-5.1) mmol/L Chloride 107 (98-107) mmol/L Carbon Dioxide 24 (22-30) mmol/L BUN 17 (9-20) mg/dL Creatinine 0.95 (0.66-1.25) mg/dL Glucose 116 H (74-99) mg/dL Calcium 9.5 (8.4-10.2) mg/dL Adrenal panel 08/10/22 Range/Units 06:25 Sodium 142 (137-145) mmol/L Potassium 4.2 (3.5-5.1) mmol/L Chloride 107 (98-107) mmol/L Carbon Dioxide 24 (22-30) mmol/L BUN 17 (9-20) mg/dL Creatinine 0.95 (0.66-1.25) mg/dL Glucose 116 H (74-99) mg/dL Calcium 9.5 (8.4-10.2) mg/dL Assessment and Plan Assessment: Left ICA stenosis History of TIA's Plan: TCAR with left ICA stenting. Continue aspirin, plavix and statin.
[2022-08-10] MEDS ORDERED: MIDAZOLAM 1 MG/ML 5 ML VIAL IV STA (07:25)
[2022-08-10] MEDS ORDERED: HYDROmorphone (PF) 1 MG/ML ONE (07:45)
[2022-08-10] MEDS ORDERED: ceFAZolin 1,000 MG VIAL ONE (07:45)
[2022-08-10] MEDS ORDERED: GLYCOPYRROLATE 0.2 MG/ML 2 ML VIAL ONE (07:45)
[2022-08-10] MEDS ORDERED: DEXMEDETOMIDINE 200 MCG/2 ML VIAL IV ONE (07:45)
[2022-08-10] MEDS ORDERED: PROTAMINE SULFATE 10 MG/ML 5 ML VIAL IV ONE (07:45)
[2022-08-10] MEDS ORDERED: ESMOLOL 100 MG/10 ML VIAL ONE (07:45)
[2022-08-10] MEDS ORDERED: SODIUM CHLORIDE 0.9% 100 ML BAG ONE (07:45)
[2022-08-10] MEDS ORDERED: ePHEDrine 50 MG/ML 1 ML VIAL ONE (07:45)
[2022-08-10] MEDS ORDERED: fentaNYL (PF) 50 MCG/ML 2 ML AMP ONE (07:45)
[2022-08-10] MEDS ORDERED: HEPARIN SODIUM,PORCINE 10,000 UNIT/ML 1 ML VIAL ONE (07:45)
[2022-08-10] MEDS ORDERED: HEPARIN SODIUM,PORCINE 10,000 UNIT in SODIUM CHLORIDE 0.9% 1,000 ML IRRIGATION ONE (08:00)
[2022-08-10] MEDS ORDERED: RX INFO: IV CONTRAST WAS GIVEN 1 EACH MISC MISCELLANE PRN (09:00)
[2022-08-10] MEDS ORDERED: LIDOCAINE 1% INJ 10MG/ML (20 ML MDV) SQ ONE (09:24)
[2022-08-10] MEDS ORDERED: ATROPINE SULFATE 0.1 MG/ML 10ML SYRINGE IV PRN (09:58)
[2022-08-10] MEDS ORDERED: MAG HYDROX/AL HYDROX/SIMETH 30 ML CUP PO PRN (09:58)
--- NOTE | 2022-08-10 09:58 | P.OP ---
Description of Procedure: Date: 08/10/2022 Preoperative diagnosis: Left ICA stenosis greater than 90% Postoperative diagnosis: Same Procedure: Left Transcarotid artery revascularization with stenting, ultrasound- guided right common femoral vein access Surgeon: Billy Akins DO Laminating Machine Tender: None Anesthesia: Local with conscious sedation Complication: None Condition: Stable Flow reversal time: 14 minutes Stent size: 9 x 40 mm Enroute stent Contrast: 15 cc Indication for procedure: 81-year-old gentleman with history of multiple TIAs in the past with recent CTA demonstrating severe stenosis of the left ICA greater than 90%. After discussion and workup he was a candidate for TCAR and presents today for such procedure. Operative narrative: After written and informed consent was obtained the patient all risks benefits and competitions were described the patient was brought to the [facility] and laid in a supine position. The area of the neck and groins w ere prepped and draped in usual sterile fashion after appropriate anesthetic was performed per the anesthesiologist. A timeout was performed in normal fashion and antibiotics were administered prior to incision. Utilizing ultrasound the left common carotid artery was located and a transverse incision was created overlying this area. Dissection was carried between the sternocleidomastoid musculature down to the carotid sheath. The sheath was then incised and the common carotid artery was located and dissected free in a circumferential manner and controlled with umbilical tape. Once controlled attention was placed down to the common femoral vein on the right and utilizing ultrasound the vein was cannulated and the 8-Liberian sheath was placed in normal fashion. Attention was then placed back to the carotid artery and the patient was administered heparin and followed with ACTs and redosed as needed for ACT above 200. A pursestring suture was then placed at the common carotid artery with 6-0 Prolene and utilizing a multipurpose needle the common carotid artery was accessed and wire was placed followed by a 4-Liberian sheath. Carotid angiogram was then obtained demonstrating significant stenosis greater than 95% with significant calcification in the internal carotid artery. Stiff wire was then placed followed by the 8 [place] sheath. Flow reversal was then established with the enroute [employer] system after patient's blood pressure was increased to above 160, heart rate above 60 and ACT above 250. 014 wire was then placed across the lesion followed by a 6 x 30 mm balloon and balloon angioplasty was performed followed by an 9 x 40 mm Silkroad stent. Postdilatation was completed with a 6 x 30 mm balloon and final angiogram was obtained demonstrating 90% resolution of the stenosis. All guidewires and catheters were removed and the sheath was removed and the arteriotomy was secured with the previously placed pursestring suture. Hemostasis was assured with Gelfoam and thrombin. The femoral sheath was also removed and pressure was held for hemostasis. The patient all procedure well and was moving all extremities and following commands. She was then sent to PACU for recovery.
--- NOTE | 2022-08-10 10:48 | IR ---
EXAMINATION TYPE: IR stent intravas non coronary DATE OF EXAM: 08/10/2022 COMPARISON: NONE HISTORY: Fluoroscopy time. Fluoroscopy was provided to the referring clinician.
[2022-08-10] MEDS: PHENYLEPHRINE 40 MG in SODIUM CHLORIDE 0.9% 250 ML IV SCH (12:22)
[2022-08-10 12:32] LABS: Glucose,Whole Blood 82 mg/dL (70-110)
[2022-08-10] MEDS: LACTATED RINGERS 1,000 ML IV SCH (12:32)
[2022-08-10] MEDS ORDERED: ACETAMINOPHEN TAB 325 MG TAB PO ONE (13:16)
[2022-08-10] MEDS ORDERED: ACETAMINOPHEN TAB 325 MG TAB ONE (13:19)
--- NOTE | 2022-08-10 14:03 | P.CNPUL ---
History of Present Illness Consult date: 08/10/22 Requesting physician: Billy Akins Reason for consult: other Chief complaint: Hypotension. History of present illness: Pulmonary/medical care consult dated 08/10/2022. 81-year-old male whom I'm asked to see, status post trans-carotid artery revascularization with stenting, by Dr. Akins. Apparently, after the procedure, the patient's blood pressures are rather low, and for that reason, he was given a 500 mL bolus of lactated Ringer's, and started on Ranjit-Synephrine. We see the patient in phase I recovery. He's currently on 2 L. He is also receiving Ranjit-Synephrine is 0.5 mcg/kg/m. He is getting lactated Ringer's at 20 mL an hour. The patient was seen in consultation on June 05, by the vascular surgeon, for worsening carotid artery stenosis. He apparently denied any signs or symptoms such as weakness, vision changes, or speech issues. CTA of the neck demonstrated significant stenosis bilaterally, with the left side measuring greater than 85%. The patient has a history of hypertension, and previous bypass grafting. He's also had hip surgery, and knee surgery, as well as prostate surgery for prostate cancer. The patient drinks socially, denies tobacco use. Labs include a white count 11.5, hemoglobin 16.2, hematocrit 48.1, and a platelet count of 289,000. Sodium 142, potassium 4.2, chlorides 107, CO2 24, BUN 17, creatinine 0.95. Glucose was 116. Review of Systems REVIEW OF SYSTEMS: CONSTITUTIONAL: [Negative.] NEUROLOGIC: [ Negative.] HEENT: [ Negative.] CARDIAC: [Negative.] PULMONARY: [Negative.] GI: [Negative.] : [Negative.] RHEUMATOLOGIC: [ Negative.] IMMUNOLOGIC: [ Negative.] ENDOCRINE: [Negative. ] DERMATOLOGIC: [Negative.] Past Medical History Past Medical History: Coronary Artery Disease (CAD), Cancer, GERD/Reflux, Hyperlipidemia, Hypertension, Myocardial Infarction ([place]), Osteoarthritis (OA), Prostate Disorder Additional Past Medical History / Comment(s): carotid stenosis,prostate cancer- received 40 radiation tx's, bulging disc,hiatal hernia, shingles 1989, Last Myocardial Infarction Date:: 2017 History of Any Multi-Drug Resistant Organisms: None Reported Past Surgical History: Adenoidectomy, Coronary Bypass/CABG, Heart Catheterization, Joint Replacement, Tonsillectomy Additional Past Surgical History / Comment(s): when siphoning gas accidentally swallowed some-had sx to removed blackened tissue in esophagus. quad cabg 2001 ,becca knee replacements(lt done x2) rt wrist sx, rt hip replacement 08-02-15 at [facility],cataracts Past Anesthesia/Blood Transfusion Reactions: No Reported Reaction Smoking Status: Never smoker - Past Family History Mother Family Medical History: Hyperlipidemia, Hypertension Father Family Medical History: Cancer Additional Family Medical History / Comment(s): throat cancer/mets Medications and Allergies Home Medications Medication Instructions Recorded Confirmed Type Metoprolol Tartrate [Lopressor] 50 mg PO BID 08/19/15 08/09/22 History lisinopriL [Prinivil] 10 mg PO BID 04/07/17 08/09/22 History Atorvastatin [Lipitor] 40 mg PO HS 08/17/20 08/09/22 History Acetaminophen Tab [Tylenol] 500 - 1,000 mg PO Q6H PRN 08/09/22 08/10/22 History Aspirin 325 - 650 mg PO DAILY PRN 08/09/22 08/10/22 History Allergies Allergy/AdvReac Type Severity Reaction Status Date / Time No Known Allergies Allergy Verified 08/10/22 08:41 Physical Exam Osteopathic Statement: *. No significant issues noted on an osteopathic structural exam other than those noted in the History and Physical/Consult. Vitals: Vital Signs Temp Pulse Pulse Resp BP BP Pulse Ox 08/10/22 13:00 59 L 18 180/88 181/83 97 08/10/22 12:30 62 18 172/87 168/81 97 08/10/22 12:15 61 16 112/57 132/50 98 08/10/22 12:00 62 16 110/58 112/36 98 08/10/22 11:45 56 L 14 115/41 110/55 97 08/10/22 11:30 58 L 16 105/54 111/36 98 08/10/22 11:15 55 L 16 106/53 107/36 98 08/10/22 11:00 63 16 105/56 103/39 96 08/10/22 10:45 59 L 16 104/55 105/40 95 08/10/22 10:30 60 16 103/54 99/37 95 08/10/22 10:15 60 16 102/56 106/35 95 08/10/22 10:00 70 16 110/54 102/55 95 08/10/22 09:45 69 16 106/54 107/41 96 08/10/22 09:30 97.2 F L 76 17 117/56 115/36 96 08/10/22 06:30 98.4 F 76 18 186/91 189/93 96 Intake and Output 08/09/22 08/10/22 08/10/22 22:59 06:59 14:59 Intake Total 100 902 Balance 100 902 Intake: IV 100 902 Other: Weight 78.8 kg No acute distress, oriented 3. Currently on 2 L of oxygen. HEENT examination is grossly unremarkable. Neck supple. Full range of motion. No adenopathy thyromegaly or neck vein distention. The patient has a large bandage over the left neck area. Cardiovascular examination reveals regular rhythm rate. S1-S2 normal. No S3 or S4. No discernible murmur noted. Heart rate 62 bpm. Most recent blood pressure is 180/88. Lungs reveal clear breath sounds. Breath sounds are equal bilaterally. No adventitious lung sounds including wheezes rhonchi or crackles. 2 L saturation is 97%. Abdomen soft bowel sounds are heard. No masses or tenderness. Extremities are intact. No cyanosis clubbing or edema. Skin is without rash or lesion. Neurologic examination is brief but nonfocal. Results - Laboratory Findings CBC and BMP: 08/10/22 06:25 08/10/22 06:25 Abnormal lab findings: Abnormal Labs 08/10/22 08/10/22 08/10/22 06:23 06:25 06:25 WBC 11.5 H Neutrophils # 8.2 H Glucose 116 H POC Glucose (mg/dL) 114 H Assessment and Plan Assessment: Postop day #0, status post left sided, trans-carotid artery revascularization with stenting. Postoperative hypotension, status post fluid bolus, and Ranjit-Synephrine. History of hypertension. History of previous bypass surgery. History of hyperlipidemia. History of GERD. Prior history of myocardial infarction. Plan: Plan dated 08/10/2022. The patient is seen in the phase I recovery area. He's currently on 2 L. He is receiving Ranjit-Synephrine at 0.5 mcg/kg/m, to support his blood pressure. He did receive a 500 mL lactated Ringer's fluid bolus prior to Ranjit-Synephrine being started. The patient appears to be doing reasonably well. The patient will n eed a bed in the intensive care unit, while on Ranjit-Synephrine. Labs, x-rays, and medications are all reviewed. We will continue to follow and make recommendations along the way. Time with Patient: Greater than 30
[2022-08-10 15:58] LABS: Glucose,Whole Blood 81 mg/dL (70-110)
[2022-08-10] MEDS ORDERED: ACETAMINOPHEN TAB 500 MG TAB PO PRN (16:44)
--- NOTE | 2022-08-10 16:46 | P.CONS ---
History of Present Illness - Reason for Consult Consult date: 08/10/22 Medical management Requesting physician: Billy Akins - Chief Complaint Left carotid surgery - History of Present Illness This is a pleasant 81-year-old patient who follows with Dr. Carbajal. Chronic stable medical conditions include OA, CAD with history of bypass, GERD, h ypertension, hyperlipidemia, herniated disc in the lower back, prostate cancer treated with radiation treatment, hiatal hernia. Earlier today patient underwent left carotid artery revascularization and stenting with right femoral vein access. Postprocedure patient ICU. Awake. Not in any pain. Patient drips include IV Phenylnephrine. No chest pain or shortness breath. Review of systems: GEN.: None EYES: None HEENT: None NECK: None RESPIRATORY: None CARDIOVASCULAR: None GASTROINTESTINAL: None GENITOURINARY: None MUSCULOSKELETAL: Some joint pains LYMPHATICS: None HEMATOLOGICAL: None PSYCHIATRY: None NEUROLOGICAL: None Past medical history to include: CAD with bypass, GERD, hypertension, hyperlipidemia, osteoarthritis, prostate cancer receive 40 radiation treatments, herniated disc, hiatal hernia, shingles in 1989. Social history: . Does use a cane. Did multiple jobs. Also exposed to agent orange. No smoking. Alcohol occasionally. Physical examination: VITAL SIGNS: 97.9, 72, 18, 1 52 x 50, 96% on 2 L GENERAL: BMI 28.9, laying in bed awake, comfortable. EYES: Pupils equal. Conjunctiva normal. HEENT: External appearance of nose and ears normal, oral cavity grossly normal. NECK: JVD not raised; masses not palpable. Dressing over the left carotid HEART: First and second heart sounds are normal; no edema. LUNGS: Respiratory rate normal; clear to auscultation. ABDOMEN: Soft, nontender, liver spleen not palpable, no masses palpable. PSYCH: Alert and oriented x3; mood and affect normal. MUSCULOSKELETAL:No Clubbing/cyanosis;muscles-grossly intact, evidence of OA NEUROLOGICAL: Cranial nerves grossly intact; no facial asymmetry, power and sensation grossly intact. LYMPHATICS: No lymph nodes palpable in the axilla and neck INVESTIGATIONS, reviewed in the clinical context: WBC 7.5 hemoglobin 16.2 platelets 19 potassium 4.2 creatinine 0.95 Assessment and plan: -Left carotid artery revascularization and stenting, but the right femoral vein access for stenosis On aspirin and Plavix -Primary osteoarthritis Tylenol as needed -CAD with a prior history of bypass in 2001 Aspirin, Lopressor, Lipitor -GERD Tums as needed -Essential hypertension Lopressor, Prinivil, currently on IV Phenylephrine -Hyperlipidemia Lipitor -Hiatal hernia -Chronic herniated disc lower back Tylenol as needed ICU.IV Phenylephrine. Telemetric. Home medications resumed. Follow closely. Care was discussed with the patient question also. Diet to be advanced per surgery. Care was discussed with the patient. Questions answered. Thank you Dr. Akins Past Medical History Past Medical History: Coronary Artery Disease (CAD), Cancer, GERD/Reflux, Hyperlipidemia, Hypertension, Myocardial Infarction ([place]), Osteoarthritis (OA), Prostate Disorder Additional Past Medical History / Comment(s): carotid stenosis,prostate cancer- received 40 radiation tx's, bulging disc,hiatal hernia, shingles 1989, Last Myocardial Infarction Date:: 2017 History of Any Multi-Drug Resistant Organisms: None Reported Past Surgical History: Adenoidectomy, Coronary Bypass/CABG, Heart Catheterization, Joint Replacement, Tonsillectomy Additional Past Surgical History / Comment(s): when siphoning gas accidentally swallowed some-had sx to removed blackened tissue in esophagus. quad cabg 2001,becca knee replacements(lt done x2) rt wrist sx, rt hip replacement 08-02-15 at [facility],cataracts Past Anesthesia/Blood Transfusion Reactions: No Reported Reaction Smoking Status: Never smoker - Past Family History Mother Family Medical History: Hyperlipidemia, Hypertension Father Family Medical History: Cancer Additional Family Medical History / Comment(s): throat cancer/mets Medications and Allergies Home Medications Medication Instructions Recorded Confirmed Type Metoprolol Tartrate [Lopressor] 50 mg PO BID 08/19/15 08/09/22 History lisinopriL [Prinivil] 10 mg PO BID 04/07/17 08/09/22 History Atorvastatin [Lipitor] 40 mg PO HS 08/17/20 08/09/22 History Acetaminophen Tab [Tylenol] 500 - 1,000 mg PO Q6H PRN 08/09/22 08/10/22 History Aspirin 325 - 650 mg PO DAILY PRN 08/09/22 08/10/22 History Allergies Allergy/AdvReac Type Severity Reaction Status Date / Time No Known Allergies Allergy Verified 08/10/22 08:41 Physical Exam Vitals: Vital Signs Temp Pulse Pulse Pulse Resp BP BP 08/10/22 16:15 58 L 14 08/10/22 16:00 97.9 F 72 27 H 08/10/22 15:55 22 153/75 08/10/22 15:00 63 18 156/77 08/10/22 14:00 63 18 158/76 08/10/22 13:30 59 L 18 184/78 08/10/22 13:00 59 L 18 180/88 08/10/22 12:30 62 18 172/87 08/10/22 12:15 61 16 112/57 08/10/22 12:00 62 16 110/58 08/10/22 11:45 56 L 14 115/41 08/10/22 11:30 58 L 16 105/54 08/10/22 11:15 55 L 16 106/53 08/10/22 11:00 63 16 105/56 08/10/22 10:45 59 L 16 104/55 08/10/22 10:30 60 16 103/54 08/10/22 10:15 60 16 102/56 08/10/22 10:00 70 16 110/54 08/10/22 09:45 69 16 106/54 08/10/22 09:30 97.2 F L 76 17 117/56 08/10/22 06:30 98.4 F 76 18 186/91 BP Pulse Ox 08/10/22 16:15 96 08/10/22 16:00 96 08/10/22 15:55 97 08/10/22 15:00 159/67 98 08/10/22 14:00 165/56 98 08/10/22 13:30 172/60 97 08/10/22 13:00 181/83 97 08/10/22 12:30 168/81 97 08/10/22 12:15 132/50 98 08/10/22 12:00 112/36 98 08/10/22 11:45 110/55 97 08/10/22 11:30 111/36 98 08/10/22 11:15 107/36 98 08/10/22 11:00 103/39 96 08/10/22 10:45 105/40 95 08/10/22 10:30 99/37 95 08/10/22 10:15 106/35 95 08/10/22 10:00 102/55 95 08/10/22 09:45 107/41 96 08/10/22 09:30 115/36 96 08/10/22 06:30 189/93 96 Intake and Output 08/10/22 08/10/22 08/10/22 06:59 14:59 22:59 Intake Total 100 1202 7.056 Output Total 50 Balance 100 1202 -42.944 Intake: IV 100 1202 Intake, IV Titration 7.056 Amount Phenylephrine 40 mg In 7.056 Sodium Chloride 0.9% 250 ml @ 0.5 MCG/KG/MIN 15. 011 mls/hr IV .[id number] [facility] Rx#:[id number] Output: Urine 50 Other: Voiding Method Urinal # Voids 1 Weight 78.8 kg ABP, PAP, CO, CI - Last 8 Hours Arterial Blood Pressure 152/50 Arterial Blood Pressure 159/57 Results CBC & Chem 7: 08/10/22 06:25 08/10/22 06:25 Labs: Abnormal Lab Results - Last 24 Hours (Table) 08/10/22 08/10/22 08/10/22 Range/Units 06:23 06:25 06:25 WBC 11.5 H (3.8-10.6) k/uL Neutrophils # 8.2 H (1.3-7.7) k/uL Glucose 116 H (74-99) mg/dL POC Glucose (mg/dL) 114 H (70-110) mg/dL
[2022-08-10] MEDS: PSEUDOEPHEDRINE 30 MG TAB PO SCH (17:48)
[2022-08-10] MEDS: SODIUM CHLORIDE 0.9% 1,000 ML IV SCH ×2 (19:38→20:02)
[2022-08-10] MEDS: lisinopriL 10 MG TAB PO SCH (20:01)
[2022-08-10] MEDS: METOPROLOL TARTRATE 50 MG TAB PO SCH (20:01)
[2022-08-10] MEDS ORDERED: ATORVASTATIN 40 MG TAB PO SCH (21:00)
[2022-08-11] MEDS: PSEUDOEPHEDRINE 30 MG TAB PO SCH ×2 (00:03→05:26)
[2022-08-11] MEDS: PHENYLEPHRINE 40 MG in SODIUM CHLORIDE 0.9% 250 ML IV SCH (04:54)
[2022-08-11] MEDS: LACTATED RINGERS 1,000 ML IV SCH (04:58)
[2022-08-11 05:29] LABS: Basophils % (A) 0 %; Eosinophils # (A) 0.3 k/uL (0-0.7); Eosinophils % (A) 3 %; HCT 38.9 % (39.0-53.0); Lymphocytes # (A) 0.8 k/uL (1.0-4.8); Lymphocytes % (A) 9 %; MCH 30.8 pg (25.0-35.0); MCHC 33.3 g/dL (31.0-37.0); MCV 92.6 fL (80.0-100.0); Mean Platelet Volume 8.7; Monocytes # (A) 0.5 k/uL (0-1.0); Monocytes % (A) 6 %; Neutrophils # (A) 7.2 k/uL (1.3-7.7); Neutrophils % (A) 81 %; Platelet Count 127 k/uL (150-450); RDW 12.2 % (11.5-15.5); WBC 8.8 k/uL (3.8-10.6)
[2022-08-11 05:41] LABS: African American GFR (CKD) >90 (>60 ml/min/1.73 sqM); Anion Gap 9 mmol/L; Blood Urea Nitrogen 14 mg/dL (9-20); Calcium 8.3 mg/dL (8.4-10.2); Carbon Dioxide 20 mmol/L (22-30); Chloride 107 mmol/L (98-107); Glucose 92 mg/dL (74-99); Non-African American GFR(CKD) 88 (>60 ml/min/1.73 sqM); Potassium 4.1 mmol/L (3.5-5.1); Sodium 136 mmol/L (137-145)
[2022-08-11 05:42] LABS: HGB 12.9 gm/dL (13.0-17.5)
[2022-08-11 08:06] VITALS: TEMP 98.2
[2022-08-11] MEDS: lisinopriL 10 MG TAB PO SCH (08:58)
[2022-08-11] MEDS: METOPROLOL TARTRATE 50 MG TAB PO SCH (08:58)
[2022-08-11] MEDS ORDERED: CLOPIDOGREL 75 MG TAB PO SCH (09:00)
[2022-08-11] MEDS ORDERED: ASPIRIN 325 MG TAB PO SCH (09:00)
--- NOTE | 2022-08-11 10:13 | P.PN ---
Subjective Progress Note Date: 08/11/22 Principal diagnosis: Status post TCAR revascularization left carotid artery. Patient is evaluated in the Objective - Vital Signs Vital signs: Vital Signs Temp 98.2 F 08/11/22 08:00 Pulse 62 08/11/22 10:00 Resp 16 08/11/22 10:00 BP 116/53 08/11/22 10:00 Pulse Ox 98 08/11/22 08:00 FiO2 Intake & Output 08/10/22 08/11/22 08/11/22 18:59 06:59 18:59 Intake Total 7661.595 9507.852 397.651 Output Total 150 525 250 Balance 1067.012 536.852 147.651 Weight 79.5 kg Intake: IV 1202 996 46 Lactated Ringers 1,000 ml 60 40 @ 20 mls/hr IV .Q24H [facility] Rx#:[id number] Sodium Chloride 0.9% 1, 900 000 ml @ 100 mls/hr IV . Q10H [facility] Rx#:[id number] a-line 36 6 Intake, IV Titration 15.012 65.852 1.651 Amount Phenylephrine 40 mg In 15.012 65.852 1.651 Sodium Chloride 0.9% 250 ml @ 0.5 MCG/KG/MIN 15. 011 mls/hr IV .[id number] [facility] Rx#:[id number] Oral 350 Output: Urine 150 525 250 Other: Voiding Method Urinal Urinal Urinal # Voids 1 1 1 ABP, PAP, CO, CI - Last Documented Arterial Blood Pressure 122/37 - Exam Transverse 2 through 12 are grossly intact. Surgical wounds clean, dry and healing normally. Equal motor strength is noted in the upper and lower extremities bilaterally. - Labs CBC & Chem 7: 08/11/22 05:20 08/11/22 05:20 Labs: Abnormal Lab Results - Last 24 Hours (Table) 08/11/22 08/11/22 Range/Units 05:20 05:20 RBC 4.20 L (4.30-5.90) m/uL Hgb 12.9 L D (13.0-17.5) gm/dL Hct 38.9 L (39.0-53.0) % Plt Count 127 L (150-450) k/uL Lymphocytes # 0.8 L (1.0-4.8) k/uL Sodium 136 L (137-145) mmol/L Carbon Dioxide 20 L (22-30) mmol/L Calcium 8.3 L (8.4-10.2) mg/dL Assessment and Plan Assessment: Status post TCAR revascularization left carotid artery, satisfactory progress Plan: Patient is surgically stable for discharge on Plavix and aspirin. He is able to shower over his wounds starting today. Follow-up with Dr. Akins in 1-2 weeks in the office. Time with Patient: Less than 30
--- NOTE | 2022-08-11 10:43 | P.PN ---
Subjective Progress Note Date: 08/11/22 Principal diagnosis: Hypotension. Pulmonary/medical care consult dated 08/10/2022. 81-year-old male whom I'm asked to see, status post trans-carotid artery revascularization with stenting, by Dr. Akins. Apparently, after the procedure, the patient's blood pressures are rather low, and for that reason, he was given a 500 mL bolus of lactated Ringer's, and started on Ranjit-Synephrine. We see the patient in phase I recovery. He's currently on 2 L. He is also receiving Ranjit-Synephrine is 0.5 mcg/kg/m. He is getting lactated Ringer's at 20 mL an hour. The patient was seen in consultation on June 05, by the vascular surgeon, for worsening carotid artery stenosis. He apparently denied any signs or symptoms such as weakness, vision changes, or speech issues. CTA of the neck demonstrated significant stenosis bilaterally, with the left side measuring greater than 85%. The patient has a history of hypertension, and previous bypass grafting. He's also had hip surgery, and knee surgery, as well as prostate surgery for prostate cancer. The patient drinks socially, denies tobacco use. Labs include a white count 11.5, hemoglobin 16.2, hematocrit 48.1, and a platelet count of 289,000. Sodium 142, potassium 4.2, chlorides 107, CO2 24, BUN 17, creatinine 0.95. Glucose was 116. Progress note dated 08/11/2022. Postop day #1, status post trans-carotid arterial revascularization, on the left. The patient's doing well. Yesterday, he was on Ranjit-Synephrine for blood pressure support. That was weaned off. The patient's on room air. He's not receiving any IV fluids. The patient has been stable through the night. White count 8.8, hemoglobin 12.9, hematocrit 38.9, and platelet count 127,000. Sodium 136, potassium 4.1, chlorides 107, CO2 20, with a normal anion gap, BUN, and creatinine. Objective - Vital Signs Vital signs: Vital Signs Temp 98.2 F 08/11/22 08:00 Pulse 62 08/11/22 10:00 Resp 16 08/11/22 10:00 BP 116/53 08/11/22 10:00 Pulse Ox 98 08/11/22 08:00 FiO2 Intake & Output 08/10/22 08/11/22 08/11/22 18:59 06:59 18:59 Intake Total 7980.717 1772.852 397.651 Output Total 150 525 250 Balance 1067.012 536.852 147.651 Weight 79.5 kg Intake: IV 1202 996 46 Lactated Ringers 1,000 ml 60 40 @ 20 mls/hr IV .Q24H ROSE MARIE Rx#:[id number] Sodium Chloride 0.9% 1, 900 000 ml @ 100 mls/hr IV . Q10H ROSE MARIE Rx#:[id number] a-line 36 6 Intake, IV Titration 15.012 65.852 1.651 Amount Phenylephrine 40 mg In 15.012 65.852 1.651 Sodium Chloride 0.9% 250 ml @ 0.5 MCG/KG/MIN 15. 011 mls/hr IV .[id number] ROSE MARIE Rx#:[id number] Oral 350 Output: Urine 150 525 250 Other: Voiding Method Urinal Urinal Urinal # Voids 1 1 1 ABP, PAP, CO, CI - Last Documented Arterial Blood Pressure 122/37 - Exam No acute distress, oriented 3. Currently on room air. HEENT examination is grossly unremarkable. Neck supple. Full range of motion. No adenopathy thyromegaly or neck vein distention. The patient has a bandage over the left neck area. Cardiovascular examination reveals regular rhythm rate. S1-S2 normal. No S3 or S4. No discernible murmur noted. Heart rate 62 bpm. Lungs reveal clear breath sounds. Breath sounds are equal bilaterally. No adventitious lung sounds including wheezes rhonchi or crackles. Room air saturation is 98%. Abdomen soft bowel sounds are heard. No masses or tenderness. Extremities are intact. No cyanosis clubbing or edema. Skin is without rash or lesion. Neurologic examination is brief but nonfocal. - Labs CBC & Chem 7: 08/11/22 05:20 08/11/22 05:20 Labs: Abnormal Lab Results - Last 24 Hours (Table) 08/11/22 08/11/22 Range/Units 05:20 05:20 RBC 4.20 L (4.30-5.90) m/uL Hgb 12.9 L D (13.0-17.5) gm/dL Hct 38.9 L (39.0-53.0) % Plt Count 127 L (150-450) k/uL Lymphocytes # 0.8 L (1.0-4.8) k/uL Sodium 136 L (137-145) mmol/L Carbon Dioxide 20 L (22-30) mmol/L Calcium 8.3 L (8.4-10.2) mg/dL Assessment and Plan Assessment: Postop day #1, status post left sided, trans-carotid artery revascularization with stenting. Postoperative hypotension, status post fluid bolus, and Ranjit-Synephrine, both of which have been weaned off. History of hypertension. History of previous bypass surgery. History of hyperlipidemia. History of GERD. Prior history of myocardial infarction. Plan: Plan dated 08/10/2022. The patient is seen in the phase I recovery area. He's currently on 2 L. He is receiving Ranjit-Synephrine at 0.5 mcg/kg/m, to support his blood pressure. He did receive a 500 mL lactated Ringer's fluid bolus prior to Ranjit-Synephrine being started. The patient appears to be doing reasonably well. The patient will need a bed in the intensive care unit, while on Ranjit-Synephrine. Labs, x-rays, and medications are all reviewed. We will continue to follow and make recommendations along the way. Plan dated 08/11/2022. The patient's on room air. The patient is not receiving any IV fluids. He does not need any longer, vasopressor support. The patient looks very stable and has had an uneventful night. Labs, x-rays, and medications are reviewed. The patient could possibly be discharged home by vascular surgery today. We'll await their decision. We will continue to see the patient and make recommendations along the way. The most recent blood pressure is 116/53, with a mean of 78. Time with Patient: Less than 30
[2022-08-11 11:48] VITALS: BP 110/52; PULSE 63; RESP 21
--- NOTE | 2022-10-08 12:38 | CDI ---
Postoperative Hypotension is documented per the 08/10 Pulmonary consult note and pt had Left sided Trans-carotid artery revascularization with stenting on 08/10. Additional clarification is requested regarding the relationship, if any, that exists between the diagnosis and the procedure. Patients Admitting Diagnosis: Left ICA stenosis greater than 90% Post-Operative Diagnosis: Left ICA stenosis greater than 90% Procedure performed: Left sided Trans-carotid artery revascularization with stenting, ultrasound guided right common femoral vein access. History/Risk Factors: 81 year old gentleman with history of hypertension, hyperlipidemia, and multiple TIAs in the past with recent CTA demonstrating severe stenosis of the left OCA greater than 90%. Pt. is a candidate for TCAR and present today for such procedure. Clinical Indicators: 08/10 Pulmonary consult: Postoperative Hypotension Apparently after the procedure the patients blood pressures are rather low, and for that reason, he was given a 500ml bolus of Lactated Ringers, and started on Ranjit-synephrine. He is receiving Ranjit-Synephrine at 0.5mcg/kg/ml. He is getting Lactated Ringers at 20ml/hr. The patient will need a bed in the intensive care unit while on ranjit-synephrine. 08/11 Progress note dictated by Dr. Stiles: Postoperative hypotension, status post fluid bolus, and Ranjit-Synephrine, both of which have been weaned off - The patients doing well. Yesterday he was on ranjit-synephrine for blood pressure support. That was weaned off. Hes not receiving any fluids. The patient has been stable through the night. Blood Pressure Table 08/10 0945 08/10 1500 08/10 1930 08/11 0030 08/11 0400 08/11 0715 08/11 1100 Left Arm 106/54 156/77 115/54* 101/46* 128/65* 107/52* 106/36* Right Arm 107/41 159/67 - - - - - Arterial BP - - 120/44 119/46 135/50 113/64 - *Location not specified *Location not specified *Location not specified *Location not specified *Location not specified Treatment: Ranjit-Synephrine 0.5mcg/kg/min - titratable (08/10 1115 08/11 1245 with last administration time of 08/11 0454 3.002mls/hr), 500ml bolus of Lactated Ringers per 08/10 Pulm consult. What relationship, if any, exists between the diagnosis of Postoperative Hypotension and the procedure: [ ] Postoperative Hypotension is a complication of surgical procedure [ x] Postoperative Hypotension is inherent to the surgical procedure [ ] Postoperative Hypotension is related to pts co-morbid condition(s) & not a complication of the procedure [ ] Other please specify ____ [ ] Unable to determine MTDD
== END 2022-08-11 12:45 | disposition home or self-care (01) | DRG 36 ==
LOC: 2ORMAIN 05:58 → 2SICU 11:25
PROVIDERS: ADMIT Surgery; ATTEND Surgery
PROC: 037L3DZ Dilation of Left Internal Carotid Artery with Intraluminal Device, Percutaneous Approach (ICD-10-PCS; principal; 2022-08-10 07:30)
DX: I65.22 Occlusion and stenosis of left carotid artery (principal); I25.10 Atherosclerotic heart disease of native coronary artery without angina pectoris; K21.9 Gastro-esophageal reflux disease without esophagitis; I25.2 Old myocardial infarction; K44.9 Diaphragmatic hernia without obstruction or gangrene; M19.91 Primary osteoarthritis, unspecified site; I10 Essential (primary) hypertension; E78.5 Hyperlipidemia, unspecified; B02.9 Zoster without complications; I95.9 Hypotension, unspecified; Z79.02 Long term (current) use of antithrombotics/antiplatelets; Z79.82 Long term (current) use of aspirin; Z80.8 Family history of malignant neoplasm of other organs or systems; Z85.46 Personal history of malignant neoplasm of prostate; Z82.49 Family history of ischemic heart disease and other diseases of the circulatory system; Z86.73 Personal history of transient ischemic attack (TIA), and cerebral infarction without residual deficits; Z95.1 Presence of aortocoronary bypass graft; Z96.641 Presence of right artificial hip joint; Z96.653 Presence of artificial knee joint, bilateral; Z92.3 Personal history of irradiation; Z79.899 Other long term (current) drug therapy; Z87.19 Personal history of other diseases of the digestive system
CPT/HCPCS: 37215; 80048; 85025; 86850; 86900; 86901

== ENCOUNTER → 2024-01-09 | Outpatient (CLI) | payer MEDICARE, OTHER ==
--- NOTE | 2024-01-09 15:46 | PE ---
EXAMINATION TYPE: PET CT fusion skull to thigh DATE OF EXAM: 01/09/2024 COMPARISON: CT abdomen and pelvis April 07, 2017 HISTORY: History of prostate cancer 18 years ago with elevated PSA up to 6.2 currently. TECHNIQUE: Following the intravenous administration of 6.93 mCi of Ga68- Illuccix, whole body images are performed from the skull base to the midthigh. Images are reviewed on the computer in the coron al, axial, and sagittal planes. Reconstructed rotating images are created on independent workstation and reviewed on the computer. A localization and attenuation correction CT is performed in conjunc tion with the PET scan. SCAN: Initial Scan FINDINGS: SKULL BASE AND NECK: Normal uptake involving lacrimal along with submandibular and parotid glands. N o areas of abnormal hypermetabolic uptake identified. CHEST, MEDIASTINUM, AND HILAR REGION: No areas of abnormal hypermetabolic uptake. ABDOMEN AND PELVIS: Normal organ uptake. Normal excretion is seen. Prostate gland is small in size. S ome abnormal hypermetabolic uptake at the base of the prostate gland fusion image 241 anteriorly thro ugh 243 is noted. No definitive additional abnormal hypermetabolic uptake in the pelvis. Some suscept ibility artifact from right hip surgery is noted. 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 There is m oderate to severe calcified plaque at bilateral carotid bulb level. There is moderate pancreatic atrophy. There is moderate to severe calcified plaque of the abdominal a wilbert extending into the iliac branch vessels. There is exophytic simple appearing 2.4 cm cyst in the right kidney axial image 165. IMPRESSION: Small sized prostate with abnormal uptake in the base anteriorly felt separate from excre maximilian urine. No additional areas of abnormal hypermetabolic uptake. Local neoplastic recurrence cannot be excluded and further investigation with sampling and/or MRI follow-up should be considered.
== END | disposition home or self-care (01) ==
LOC: RADPETMAIN 05:51
PROVIDERS: ATTEND Urology
DX: C61 Malignant neoplasm of prostate (principal); R97.20 Elevated prostate specific antigen [PSA]
CPT/HCPCS: 78815; A9596